=== PATIENT | female | born 1940 | race Caucasian/White ===

== ENCOUNTER 2019-03-18 11:46 | Emergency (ER) | payer MEDICARE ==
[2019-03-18] MEDS ORDERED: DOXYcycline CAP(*) 100 MG PO ONE (11:54)
--- NOTE | 2019-03-18 11:56 | ED ---
Bite Injury/Animal - HPI Summary HPI Summary: 78-year-old female presents with tick bite last night. States she noticed a tick on her left arm. She removed the tick and states she got the head. She does not know how long the tick was on the area. She denies any fevers. No spreading redness. Has history of arthritis. - History of Current Complaint Chief Complaint: EDAnimalBite Stated Complaint: TICK BITE ON LEFT ARM PER PT Time Seen by Provider: 03/18/19 11:54 Pain Intensity: 0 - Allergies/Home Medications Allergies/Adverse Reactions: Allergies Allergy/AdvReac Type Severity Reaction Status Date / Time hydrocodone Allergy Rash And Verified 03/18/19 11:55 Itching PMH/Surg Hx/FS Hx/Imm Hx Endocrine/Hematology History: Denies: Hx Diabetes Cardiovascular History: Reports: Hx Hypertension - DIURETIC TWICE DAILY Denies: Hx Pacemaker/ICD Comment Only: Other Cardiovascular Problems/Disorders - LYMPHEDEMA JANESSA LEGS, murmur Respiratory History: Reports: Hx Asthma - NO MEDS., Hx Sleep Apnea Denies: Other Respiratory Problems/Disorders GI History: Reports: Hx Gastroesophageal Reflux Disease, Hx Hiatal Hernia Denies: Other GI Disorders History: Denies: Hx Dialysis, Hx Renal Disease Musculoskeletal History: Reports: Hx Arthritis - RHEUMATOID Denies: Hx Osteoporosis Sensory History: Reports: Hx Cataracts - JANESSA REMOVED, Hx Contacts or Glasses - GLASSES Denies: Hx Hearing Aid Opthamlomology History: Reports: Hx Cataracts - JANESSA REMOVED, Hx Contacts or Glasses - GLASSES Psychiatric History: Denies: Hx Panic Disorder - Cancer History Hx Chemotherapy: No Hx Radiation Therapy: No - Surgical History Surgery Procedure, Year, and Place: cataract removal,. hysterectomy,. APPENDECTOMY - REMOVED WHEN DOING AN EXPLORATORY SURG. LUMBAR surgery 12/13 Hx Anesthesia Reactions: No Infectious Disease History: No Infectious Disease History: Denies: Traveled Outside the [place] in Last 30 Days - Family History Known Family History: Positive: None - reviewed & noncontributory - Social History Alcohol Use: None Hx Substance Use: No Substance Use Type: Reports: None Hx Tobacco Use: No Smoking Status (MU): Never Smoked Tobacco Review of Systems Negative: Fever Negative: Chest Pain Negative: Shortness Of Breath Positive: Other - tick bite All Other Systems Reviewed And Are Negative: Yes Physical Exam Triage Information Reviewed: Yes Vital Signs On Initial Exam: Initial Vitals Temp Pulse Resp BP Pulse Ox 98 F 73 16 179/81 96 03/18/19 11:49 03/18/19 11:49 03/18/19 11:49 03/18/19 11:49 03/18/19 11:49 Vital Signs Reviewed: Yes Appearance: Positive: Well-Appearing Skin: Positive: Warm, Dry, Other - tick bite on left arm with erythema around bite that is not warm to touch Head/Face: Positive: Normal Head/Face Inspection Eyes: Positive: Normal, Conjunctiva Clear ENT: Positive: Pharynx normal Respiratory/Lung Sounds: Positive: Clear to Auscultation, Breath Sounds Present Cardiovascular: Positive: Normal, RRR Musculoskeletal: Positive: Normal Neurological: Positive: Normal Psychiatric: Positive: Normal Diagnostics - Vital Signs Vital Signs Temp Pulse Resp BP Pulse Ox 03/18/19 11:49 98 F 73 16 179/81 96 - Laboratory Lab Statement: Any lab studies that have been ordered have been reviewed, and results considered in the medical decision making process. Bite Injury Course/Dx - Course Course Of Treatment: 78-year-old female presents with tick bite last night. States she noticed a tick on her left arm. She removed the tick and states she got the head. She does not know how long the tick was on the area. She denies any fevers. No spreading redness. Has history of arthritis. On exam has tick bite to left arm with no tick present. No spreading rash. Also has dog bites incidental on the left with no signs of infection that are old and healing. Gave doxycycline as prophylaxis. Told if develop any new rash return. Patient understands agrees with plan. - Diagnoses Differential Diagnosis/HQI/PQRI: Positive: Cellulitis, Other - tick bite, lyme Provider Diagnosis: Tick bite Discharge - Sign-Out/Discharge Documenting (check all that apply): Patient Departure Patient Received Moderate/Deep Sedation with Procedure: No - Discharge Plan Condition: Good Disposition: HOME Patient Education Materials: Tick Bite (ED) Referrals: Anthony Soto MD [Primary Care Provider] - Additional Instructions: You have been prophylactically treated for Lyme disease Return to ED if develop any rash or signs of infection - Billing Disposition and Condition Condition: GOOD Disposition: Home
--- OUTSIDE RECORDS SUMMARY | 2019-03-18 12:03 | XMS REPORT | Continuity of Care Document ---
:1940 External Reference #:[id number] Author Name Lucia Felix Care Team Providers Name Role Phone Anthony Soto MD Primary Care Physician Unavailable Payers Date Identification Numbers Payment Provider Subscriber Policy Number: [id number] Medicare Blue Ppo Alyx Vaughn Group Number: [id number] [address] [address] PayID: [id number] [place] [address] Effective: 2005 Policy Number: [id number] Medicare Alyx Vaughn Expires: 2018 PayID: [id number] [address] [place] [address] Effective: 2016 Policy Number: [id number] Progressive Alyx Vaughn Onset: 2016 Group Name: [address] [id number] PayID: [id number] [place] [address] Expires: 2018 Policy Number: [id number] Medicare Alyx Vaughn PayID: [id number] [address] [place] [address] Advance Directives Description No Information Available Problems Active Problems Provider Date Displacement of lumbar intervertebral disc Tyrell Fried M.D. Onset: 2012 without myelopathy Thoracic and lumbosacral neuritis Tyrell Fried M.D. Onset: 11/20/2014 Dyspnea Aylin Devlin M.D. Onset: 12/21/2015 Mitral valve disorder Aylin Devlin M.D. Onset: 12/21/2015 Essential hypertension Aylin Devlin M.D. Onset: 12/21/2015 Syncope and collapse Aylin Devlin M.D. Onset: 05/02/2016 Paroxysmal supraventricular tachycardia Aylin Devlin M.D. Onset: 05/02/2016 Obstructive sleep apnea syndrome Aylin Devlin M.D. Onset: 05/02/2016 Dizziness and giddiness Aylin Devlin M.D. Onset: 06/10/2016 Lumbar radiculopathy Tyrell Fried M.D. Onset: 07/02/2018 Lumbar spondylolisthesis Tyrell Fried M.D. Onset: 07/26/2018 Rheumatoid arthritis Ileana Dean M.D. Onset: 02/18/2019 Localized, primary osteoarthritis Ileana Daen M.D. Onset: 02/18/2019 Family History Date Family Member(s) Observation Comments General Heart Disease both parents Father due to in 1970's heart () Mother due to Heart Disease () - age 93 Social History Type Date Description Comments Sex Unknown Marital Status Lives With Occupation Retired Tobacco Use Start: Unknown Never Smoked Cigarettes ETOH Use Rarely consumes alcohol Recreational Drug Use Denies Drug Use Tobacco Use Start: Unknown Patient has never smoked Smoking Status Reviewed: 03/17/19 Patient has never smoked Exercise Type/Frequency Exercises sporadically PT 2x week Allergies, Adverse Reactions, Alerts Active Allergies Reaction Severity Comments Date Hydrocodone 09/21/2013 Medications Active Medications SIG Qnty Indications Ordering Date Provider Methotrexate take 4 16tabs M06.09 Yosi Amador, 02/21/2019 2.5mg capsules/tablets by M.D. Tablets mouth once weekly on Mondays BD 1ML Tuberculin use for weekly 12units Yosi Amador, 02/15/2019 Syringe/Safetyglide injection of M.D. TB Needle 27GX1/2" methotrexate 27G X 1/2" 1 ML Misc Folic Acid Take One Tablet By 30tabs M06.4 Yosi Amador, 09/15/2018 1mg Mouth Every Day M.D. Tablets Duloxetine HCL 1 by mouth once a Unknown 30mg week (mondays) Caps DR Aquino Spironolactone/Bowie Take One Tablet By Unknown chlorothiazide Mouth Twice A Day 25-25mg Tablets History Medications Methotrexate Sodium inject 0.4 milliliters 8ml M06.09 Yosi 02/15/2019 - (PF) (10 mg) subcutaneously Perry, 02/21/2019 50mg/2ML Solution once per week as M.D. directed. single-dose vial. discard any remainder after use Sulfasalazine take 2 tabs in the 270tabs M06.09 Yosi 08/18/2018 - 500mg Tablets morning and 2 tabs in Perry, 02/15/2019 DR the evening for a total M.D. of 4 daily tabs daily ongoing No Active Medications Unknown 06/23/2017 - 06/04/2018 Colace Clear 1 daily (pt no longer Aylin 06/10/2016 - Jel taking) Luce, 08/30/2016 M.D. Spironolactone 1 by mouth every other 30tabs R55 Aylin 04/18/2016 - 25mg Tablets day alternating with [place], 08/30/2016 Hydrochlorothiazide (pt M.D. no longer taking) Hydrochlorothiazide 1 by mouth every other 30tabs R55 Aylin 04/18/2016 - 25mg day alternating with [place], 08/30/2016 Tablets Spironolactone (pt no M.D. longer taking) Gabapentin 1 po tid 90caps 722.10 Tyrell 03/16/2014 - 300mg Capsules [place], 09/28/2014 M.D. Gabapentin 2 tab po qam,1 tab 150caps 722.10 Tyrell 01/18/2014 - 300mg Capsules after lunch,2 tab po hs Corky, 03/16/2014 M.D. Codeine/Acetaminophen 1 po Q6h prn pain 60tabs 722.10 Tyrell 01/18/2014 - [place], 02/16/2014 300-30mg Tablets M.D. Tylenol/Codeine #3 1-2 po q 6h prn pain 60tabs Tyrell 01/05/2014 - 300-30mg [place], 02/16/2014 Tablets M.D. Gabapentin 1 po bid and 2 po at hs 90caps 722.10 Tyrell 12/28/2013 - 300mg Capsules Corky, 02/16/2014 M.D. Codeine/Acetaminophen 1-2 po Q6h prn pain 60tabs 722.10 Tyrell 12/28/2013 - Corky, 01/18/2014 300-15mg Tablets M.D. Medrol medrol dosepack as 1pak Tyrell 12/28/2013 - 4mg Tablets directed Corky, 01/18/2014 Miko Aleve 1 daily as needed Unknown - 220mg Capsules 06/09/2016 Essential Electrolytes once daily (pt no Unknown - longer taking) 06/08/2017 Gabapentin 1 by mouth daily as Unknown - 300mg Capsules needed 05/01/2016 Tramadol HCL 1/2 tablet po daily ( Unknown - 50mg Tablets started decrease dose 06/08/2017 on thursday04/15/16) Myrbetriq 1 tablet po daily Am Unknown - 50mg Tablets ER 06/08/2017 24HR Magnesium OTC 1 tablet po daily Unknown - 250mg 06/08/2017 Estrace apply as directed Unknown - 0.1mg/GM Cream 06/08/2017 Cartia XT 1 cap po daily(pt no Shallish, - 120mg Caps ER longer taking) MD Anthony 06/08/2017 24HR Metronidazole applicated vaginal as Unknown - 0.75% Gel nighttime as needed 06/08/2017 Ranitidine HCL take one tablet by Unknown - 150mg mouth once a week 06/08/2017 Tablets Fridays Aldactazide 1 tablet twice daily Unknown - 25-25mg Tablets 02/15/2019 Fluocinolone Acetonide topical every day for 2 Unknown - Scalp weeks, then stop for 2 07/01/2018 0.01% Oil weeks, may repeat Gabapentin 1 by mouth once daily Unknown - 300mg Capsules 12/16/2018 Clindamycin Phosphate apply as needed Unknown - 1% 12/16/2018 Lotion Sulfamethoxazole-Trimet 1 by mouth twice a day Unknown - hoprim 07/26/2018 400-80mg Tablets Fluocinolone Acetonide apply twice daily to Unknown - affected area. as 12/16/2018 0.01% Cream needed Atorvastatin Calcium 1 by mouth every day(pt Unknown - 10mg no longer taking) 06/08/2017 Tablets Hydrocortisone apply to affected area Unknown - 2.5% Cream twice daily 04/17/2016 Gabapentin 1 by mouth three times Unknown - 300mg Capsules a day 10/21/2015 Acetaminophen-Codeine 1 tid Unknown - #3 10/30/2014 300-30mg Tablets Spironolactone/Hydrochl 1 po qd prn Shallish, - orothiazide MD Anthony 04/18/2016 25-25mg Tablets Colace 1 po bid 40caps Unknown - 100mg Capsules 02/16/2014 Spironolactone 1 po qd 30tabs Unknown - 25mg Tablets 01/19/2014 Multi-Vitamins 1 po qd 30tabs Unknown - Tablets 06/08/2017 Fish Oil 1 po qd Unknown - 1000mg Capsules 06/08/2017 Tylenol/Codeine #3 1-2 po q 4-6 hr prn 20tabs Unknown - 300-30mg pain. 01/18/2014 Tablets Acetaminophen Extra 1 tab by mouth twice a 90tabs Unknown - Strength day as needed 09/28/[address] 1 po once per week 30tabs Unknown - 20mg Tablets Mondays06/08/2017 DR Vitamin D3 1 po daily 30caps Unknown - 1000Unit 06/08/2017 Capsules Tylenol Sinus prn 24tabs Unknown - Congestion & Pain 12/21/2013 5-325mg Tablets Oxycodone HCL 1-2 po qid prn 45tabs Unknown - 5mg Tablets 12/21/2013 Losartan Potassium 1 po qd 30tabs Unknown - 25mg 05/02/2016 Tablets Medications Administered in Office Medication SIG Qnty Indications Ordering Provider Date Depomedrol 40MG Ileana Dean M.D. 02/18/2019 Injection Depomedrol 40MG Ileaan Dean M.D. 02/18/2019 Injection Technetium TC 99M Kane Quijano, DO [facility] 07/13/2018 Tetrofosmin, Per Unit Dose Up To 40 Millicuries Injection Technetium TC 99M Tr Matthew M.D., 12/18/2015 Tetrofosmin, Per Unit Dose [facility], [facility] Up To 40 Millicuries Injection Technetium TC 99M Aylin Devlin M.D. 12/18/2015 Tetrofosmin, Per Unit Dose Up To 40 Millicuries Injection Immunizations CPT Code Status Date Vaccine Reaction Lot # [id number] Given 09/15/2018 Fluzone High Dose no immediate reaction [id number] noted 40038 Given 10/19/2015 Influenza Virus 3Yrs & Over Vital Signs Date Vital Result Comment 03/17/2019 12:48pm Height 64 inches 5'4" Weight 193.00 lb Heart Rate 70 /min reg BP Systolic Sitting 144 mmHg Lue reg cuff BP Diastolic Sitting 88 mmHg Lue reg cuff Respiratory Rate 16 /min BMI (Body Mass Index) 33.1 kg/m2 03/04/2019 2:17pm Height 64 inches 5'4" Weight 193.00 lb BP Systolic 140 mmHg BP Diastolic 96 mmHg Pain Level 5 BMI (Body Mass Index) 33.1 kg/m2 02/18/2019 9:57am Height 64 inches 5'4" Weight 203.00 lb BP Systolic 120 mmHg BP Diastolic 76 mmHg Pain Level 9 BMI (Body Mass Index) 34.8 kg/m2 02/15/2019 11:37am Height 64 inches 5'4" Weight 203.50 lb Heart Rate 73 /min BP Systolic Sitting 132 mmHg BP Diastolic Sitting 78 mmHg Pain Level 7 O2 % BldC Oximetry 96 % BMI (Body Mass Index) 34.9 kg/m2 12/16/2018 12:50pm Height 64 inches 5'4" Weight 205.00 lb Heart Rate 68 /min BP Systolic Sitting 136 mmHg BP Diastolic Sitting 72 mmHg Respiratory Rate 14 /min Pain Level 7 BMI (Body Mass Index) 35.2 kg/m2 09/17/2018 9:38am Height 64 inches 5'4" Weight 194.00 lb w/ shoes BP Systolic Sitting 122 mmHg lue lg cuff BP Diastolic Sitting 78 mmHg lue lg cuff BP Systolic Standing 128 mmHg lue lg cuff BP Diastolic Standing 76 mmHg lue lg cuff BMI (Body Mass Index) 33.3 kg/m2 Ejection Fraction 55-60% echo 06/24/2018 09/15/2018 1:33pm Height 64 inches 5'4" Weight 195.00 lb Heart Rate 80 /min BP Systolic Sitting 118 mmHg BP Diastolic Sitting 64 mmHg Respiratory Rate 14 /min Pain Level 5 BMI (Body Mass Index) 33.5 kg/m2 08/18/2018 2:49pm Height 64 inches 5'4" Weight 201.00 lb Heart Rate 74 /min BP Systolic Sitting 124 mmHg BP Diastolic Sitting 68 mmHg Respiratory Rate 14 /min Pain Level 10 BMI (Body Mass Index) 34.5 kg/m2 07/26/2018 9:45am Height 64 inches 5'4" Weight 190.00 lb BP Systolic Sitting 150 mmHg BP Diastolic Sitting 60 mmHg Pain Level 8 BMI (Body Mass Index) 32.6 kg/m2 07/02/2018 10:26am Height 64 inches 5'4" Weight 190.00 lb BP Systolic Sitting 118 mmHg BP Diastolic Sitting 70 mmHg Pain Level 6 BMI (Body Mass Index) 32.6 kg/m2 07/01/2018 8:51am Height 64 inches 5'4" Weight 190.00 lb Heart Rate 70 /min BP Systolic Sitting 116 mmHg BP Diastolic Sitting 68 mmHg Respiratory Rate 14 /min Pain Level 10 BMI (Body Mass Index) 32.6 kg/m2 06/04/2018 11:19am Height 64 inches 5'4" Weight 193.00 lb w/ shoes Heart Rate 60 /min BP Systolic Sitting 118 mmHg lue lg cuff BP Diastolic Sitting 74 mmHg lue lg cuff BP Systolic Standing 116 mmHg lue lg cuff BP Diastolic Standing 72 mmHg lue lg cuff Respiratory Rate 20 /min BMI (Body Mass Index) 33.1 kg/m2 Ejection Fraction 55-60% echo 12/17/15 06/23/2017 8:44am Height 64 inches 5'4" Weight 194.00 lb with sandals Heart Rate 64 /min BP Systolic Sitting 138 mmHg Rue lrg cuff BP Diastolic Sitting 78 mmHg Rue lrg cuff BP Systolic Standing 142 mmHg Rue lrg cuff BP Diastolic Standing 86 mmHg Rue lrg cuff Respiratory Rate 16 /min BMI (Body Mass Index) 33.3 kg/m2 Ejection Fraction 55-60% 12/17/2015-echo 06/10/2016 3:03pm Height 64 inches 5'4" Weight 197.00 lb with shoes Heart Rate 66 /min BP Systolic Sitting 124 mmHg Ra lrg cuff BP Diastolic Sitting 66 mmHg Ra lrg cuff BP Systolic Standing 116 mmHg Ra lrg cuff BP Diastolic Standing 76 mmHg Ra lrg cuff Respiratory Rate 17 /min BMI (Body Mass Index) 33.8 kg/m2 Ejection Fraction 55-60% 12/17/15 05/07/2016 10:18am Height 64 inches 5'4" Weight 199.50 lb with shoes Heart Rate 70 /min BP Systolic 138 mmHg LA lrg cuff BP Diastolic 78 mmHg LA lrg cuff BMI (Body Mass Index) 34.2 kg/m2 Ejection Fraction 63% Nem 12/18/15 05/02/2016 8:24am Height 64 inches 5'4" Weight 199.00 lb with shoes Heart Rate 68 /min BP Systolic Sitting 100 mmHg left arm, large cuff BP Diastolic Sitting 64 mmHg left arm, large cuff BP Systolic Standing 98 mmHg left arm, large cuff BP Diastolic Standing 64 mmHg left arm, large cuff Respiratory Rate 16 /min BMI (Body Mass Index) 34.2 kg/m2 Ejection Fraction 55-60% 12/17/15 04/18/2016 9:43am Height 64 inches 5'4" Weight 196.00 lb without shoes Heart Rate 66 /min BP Systolic Sitting 110 mmHg La lg cuff BP Diastolic Sitting 70 mmHg La lg cuff BP Systolic Standing 104 mmHg La lg cuff BP Diastolic Standing 70 mmHg La lg cuff Respiratory Rate 17 /min BMI (Body Mass Index) 33.6 kg/m2 Ejection Fraction 55-60% date 12/17/15 ECHO 12/21/2015 2:12pm Height 64 inches 5'4" Weight 205.00 lb w/ shoes Heart Rate 72 /min reg BP Systolic Sitting 150 mmHg Rue, reg cuff BP Diastolic Sitting 94 mmHg Rue, reg cuff BP Systolic Standing 150 mmHg Rue BP Diastolic Standing 96 mmHg Rue Respiratory Rate 20 /min BMI (Body Mass Index) 35.2 kg/m2 Ejection Fraction 55-60% as of 12/17/15 echo 12/13/2015 2:21pm Height 64 inches 5'4" Weight 210.00 lb with boots Heart Rate 64 /min regular BP Systolic 122 mmHg left arm reg cuff BP Diastolic 64 mmHg left arm reg cuff BP Systolic Sitting 122 mmHg right arm reg cuff BP Diastolic Sitting 68 mmHg right arm reg cuff BP Systolic Standing 126 mmHg right arm reg cuff BP Diastolic Standing 68 mmHg right arm reg cuff Respiratory Rate 20 /min BMI (Body Mass Index) 36.0 kg/m2 Ejection Fraction 63% 2006 echo 10/19/2015 9:56am Height 64 inches 5'4" Weight 210.25 lb Heart Rate 78 /min BP Systolic Sitting 132 mmHg BP Diastolic Sitting 76 mmHg Respiratory Rate 18 /min O2 % BldC Oximetry 93 % BMI (Body Mass Index) 36.1 kg/m2 10/15/2015 1:56pm Height 64 inches 5'4" Weight 210.25 lb Heart Rate 74 /min BP Systolic 150 mmHg BP Diastolic 82 mmHg Respiratory Rate 14 /min Body Temperature 98.5 F O2 % BldC Oximetry 98 % BMI (Body Mass Index) 36.1 kg/m2 Neck Circumference in inches 14 07/09/2015 10:34am Height 64 inches 5'4" Weight 204.00 lb Pain Level 8 BMI (Body Mass Index) 35.0 kg/m2 05/07/2015 8:59am Height 64 inches 5'4" Weight 204.00 lb Pain Level 8 BMI (Body Mass Index) 35.0 kg/m2 01/10/2015 10:35am Height 64 inches 5'4" Weight 204.00 lb Heart Rate 68 /min BP Systolic 138 mmHg BP Diastolic 82 mmHg Pain Level 10 BMI (Body Mass Index) 35.0 kg/m2 12/14/2014 10:25am Height 66 inches 5'6" Weight 207.00 lb Heart Rate 70 /min BP Systolic Sitting 126 mmHg BP Diastolic Sitting 80 mmHg Pain Level 10 all over BMI (Body Mass Index) 33.4 kg/m2 11/28/2014 2:18pm Height 66 inches 5'6" Weight 206.00 lb Heart Rate 60 /min BP Systolic Sitting 124 mmHg BP Diastolic Sitting 80 mmHg Respiratory Rate 16 /min BMI (Body Mass Index) 33.2 kg/m2 11/20/2014 1:52pm Height 66 inches 5'6" Weight 206.00 lb Heart Rate 60 /min BP Systolic Sitting 124 mmHg BP Diastolic Sitting 70 mmHg Pain Level 0 BMI (Body Mass Index) 33.2 kg/m2 10/30/2014 9:03am Height 66 inches 5'6" Weight 208.00 lb Heart Rate 60 /min BP Systolic Sitting 134 mmHg BP Diastolic Sitting 82 mmHg Pain Level 2 L buttock /leg BMI (Body Mass Index) 33.6 kg/m2 09/28/2014 9:58am Height 66 inches 5'6" Weight 204.00 lb Heart Rate 76 /min BP Systolic Sitting 126 mmHg BP Diastolic Sitting 84 mmHg Pain Level 5 Lbuttock 7 leg BMI (Body Mass Index) 32.9 kg/m2 03/16/2014 1:02pm Height 66 inches 5'6" Weight 207.00 lb BP Systolic 122 mmHg BP Diastolic 74 mmHg Pain Level 3 back BMI (Body Mass Index) 33.4 kg/m2 02/16/2014 1:02pm Height 66 inches 5'6" Weight 209.00 lb BP Systolic 124 mmHg BP Diastolic 82 mmHg Pain Level 5 left hip and leg BMI (Body Mass Index) 33.7 kg/m2 01/18/2014 12:56pm Height 66 inches 5'6" Weight 206.00 lb BP Systolic 108 mmHg BP Diastolic 62 mmHg Pain Level 5 back and left leg BMI (Body Mass Index) 33.2 kg/m2 12/28/2013 11:54am Height 66 inches 5'6" Weight 212.00 lb BP Systolic 122 mmHg BP Diastolic 80 mmHg Pain Level 7-8 back BMI (Body Mass Index) 34.2 kg/m2 12/21/2013 1:40pm Height 66 inches 5'6" Weight 212.00 lb BP Systolic 138 mmHg BP Diastolic 82 mmHg Pain Level 8 low back, left leg BMI (Body Mass Index) 34.2 kg/m2 09/21/2013 9:52am Height 66 inches 5'6" Weight 214.00 lb BP Systolic 128 mmHg BP Diastolic 86 mmHg Pain Level 8 low back and left leg BMI (Body Mass Index) 34.5 kg/m2 Results Test Date Facility Test Result H/L Range Note Comp Metabolic Panel 03/16/2019 [facility] Sodium 140 mmol/L N 135-[address] [place] [address] [phone] Potassium 4.0 mmol/L N 3.5-5.0 Chloride 105 mmol/L N 101-111 Co2 Carbon Dioxide 31 mmol/L N 22-32 Anion Gap 4 mmol/L N 2-11 Glucose 86 mg/dL N 70-100 Blood Urea Nitrogen 18 mg/dL N 6-24 Creatinine 0.63 mg/dL N 0.51-0.95 BUN/Creatinine Ratio 28.6 High 8-20 Calcium 9.3 mg/dL N 8.6-10.3 Total Protein 6.4 g/dL N 6.4-8.9 Albumin 3.9 g/dL N 3.2-5.2 Globulin 2.5 g/dL N 2-4 Albumin/Globulin Ratio 1.6 N 1-3 Total Bilirubin 0.50 mg/dL N 0.2-1.0 Alkaline Phosphatase 66 U/L N 34-104 Alt 15 U/L N 7-52 Ast 17 U/L N 13-39 Egfr Non- 91.4 >60 Egfr 110.6 >60 1 CBC Auto Diff 03/16/2019 [facility] White Blood 8.0 10^3/uL N 3.5-10.[address] [place] [address] [phone] Red Blood Count 4.90 10^6/uL High 3.70-4.87 Hemoglobin 13.3 g/dL N 12.0-16.0 Hematocrit 41 % N 33-41 Mean Corpuscular Volume 84 fL N 80-97 Mean Corpuscular Hemoglobin 27 pg N 27-31 Mean Corpuscular HGB Conc 33 g/dL N 31-36 Red Cell Distribution Width 17 % High 10.5-15 Platelet Count 236 10^3/uL N 150-450 Mean Platelet Volume 10.0 fL N 7.4-10.4 Abs Neutrophils 5.4 10^3/uL N 1.5-7.7 Abs Lymphocytes 1.7 10^3/uL N 1.0-4.8 Abs Monocytes 0.5 10^3/uL N 0-0.8 Abs Eosinophils 0.2 10^3/uL N 0-0.6 Abs Basophils 0.2 10^3/uL N 0-0.2 Abs Nucleated RBC 0 10^3/uL Granulocyte % 67.7 % Lymphocyte % 20.8 % Monocyte % 6.5 % Eosinophil % 3.0 % Basophil % 2.0 % Nucleated Red Blood Cells % 0.1 Laboratory test 03/16/2019 [facility] Erythrocyte Sed 26 mm/Hr N 0-[address] [place] [address] [phone] Anti Nuclear Antibody <pending> C Reactive Protein 2.20 mg/L N <8.01 Laboratory test 02/14/2019 [facility] Erythrocyte Sed 35 mm/Hr High 0-30 [address] [place] [address] [phone] C Reactive Protein 4.03 mg/L N <8.01 3 CBC Auto Diff 02/14/2019 [facility] White Blood 6.1 10^3/uL N 3.5-10.[address] [place] [address] [phone] Red Blood Count 4.64 10^6/uL N 3.70-4.87 Hemoglobin 12.8 g/dL N 12.0-16.0 Hematocrit 38 % N 33-41 Mean Corpuscular Volume 83 fL N 80-97 Mean Corpuscular Hemoglobin 28 pg N 27-31 Mean Corpuscular HGB Conc 33 g/dL N 31-36 Red Cell Distribution Width 17 % High 10.5-15 Platelet Count 251 10^3/uL N 150-450 Mean Platelet Volume 9.6 fL N 7.4-10.4 Abs Neutrophils 4.0 10^3/uL N 1.5-7.7 Abs Lymphocytes 1.3 10^3/uL N 1.0-4.8 Abs Monocytes 0.6 10^3/uL N 0-0.8 Abs Eosinophils 0.2 10^3/uL N 0-0.6 Abs Basophils 0.1 10^3/uL N 0-0.2 Abs Nucleated RBC 0 10^3/uL Granulocyte % 64.4 % Lymphocyte % 20.6 % Monocyte % 9.4 % Eosinophil % 3.3 % Basophil % 2.3 % Nucleated Red Blood Cells % 0 Comp Metabolic Panel 02/14/2019 [facility] Sodium 139 mmol/L N 135-[address] [place] [address] [phone] Potassium 3.9 mmol/L N 3.5-5.0 Chloride 102 mmol/L N 101-111 Co2 Carbon Dioxide 30 mmol/L N 22-32 Anion Gap 7 mmol/L N 2-11 Glucose 85 mg/dL N 70-100 Blood Urea Nitrogen 17 mg/dL N 6-24 Creatinine 0.67 mg/dL N 0.51-0.95 BUN/Creatinine Ratio 25.4 High 8-20 Calcium 9.3 mg/dL N 8.6-10.3 Total Protein 6.6 g/dL N 6.4-8.9 Albumin 4.0 g/dL N 3.2-5.2 Globulin 2.6 g/dL N 2-4 Albumin/Globulin Ratio 1.5 N 1-3 Total Bilirubin 0.40 mg/dL N 0.2-1.0 Alkaline Phosphatase 72 U/L N 34-104 Alt 12 U/L N 7-52 Ast 16 U/L N 13-39 Egfr Non- 85.1 >60 Egfr 103.0 >60 4 Laboratory test 12/13/2018 [facility] Erythrocyte Sed 68 mm/Hr High 0-40 [address] [place] [address] [phone] C Reactive Protein 8.24 mg/L High <8.01 6 CBC Auto Diff 12/13/2018 [facility] White Blood 7.4 10^3/uL N 3.5-10.[address] [place] [address] [phone] Red Blood Count 4.60 10^6/uL N 4.00-5.40 Hemoglobin 12.1 g/dL N 12.0-16.0 Hematocrit 38 % N 35-47 Mean Corpuscular Volume 82 fL N 80-97 Mean Corpuscular Hemoglobin 26 pg Low 27-31 Mean Corpuscular HGB Conc 32 g/dL N 31-36 Red Cell Distribution Width 16 % High 10.5-15 Platelet Count 265 10^3/uL N 150-450 Mean Platelet Volume 9.8 fL N 7.4-10.4 Abs Neutrophils 4.9 10^3/uL N 1.5-7.7 Abs Lymphocytes 1.4 10^3/uL N 1.0-4.8 Abs Monocytes 0.8 10^3/uL N 0-0.8 Abs Eosinophils 0.2 10^3/uL N 0-0.6 Abs Basophils 0.1 10^3/uL N 0-0.2 Abs Nucleated RBC 0 10^3/uL Granulocyte % 66.3 % Lymphocyte % 19.4 % Monocyte % 10.3 % Eosinophil % 2.2 % Basophil % 1.8 % Nucleated Red Blood Cells % 0 Comp Metabolic Panel 12/13/2018 [facility] Sodium 141 mmol/L N 135-[address] [place] [address] [phone] Potassium 3.6 mmol/L N 3.5-5.0 Chloride 102 mmol/L N 101-111 Co2 Carbon Dioxide 33 mmol/L High 22-32 Anion Gap 6 mmol/L N 2-11 Glucose 83 mg/dL N 70-100 Blood Urea Nitrogen 19 mg/dL N 6-24 Creatinine 0.76 mg/dL N 0.51-0.95 BUN/Creatinine Ratio 25.0 High 8-20 Calcium 9.7 mg/dL N 8.6-10.3 Total Protein 6.5 g/dL N 6.4-8.9 Albumin 4.1 g/dL N 3.2-5.2 Globulin 2.4 g/dL N 2-4 Albumin/Globulin Ratio 1.7 N 1-3 Total Bilirubin 0.40 mg/dL N 0.2-1.0 Alkaline Phosphatase 67 U/L N 34-104 Alt 15 U/L N 7-52 Ast 19 U/L N 13-39 Egfr Non- 73.6 >60 Egfr 89.1 >60 7 Laboratory test 09/13/2018 [facility] Erythrocyte Sed 64 mm/Hr High 0-40 [address] [place], [place] [id number] [phone] C Reactive Protein 2.89 mg/L N <8.01 9 CBC Auto Diff 09/13/2018 [facility] White Blood 8.3 10^3/uL N 3.5-10.[address] [place], [place] [id number] [phone] Red Blood Count 4.62 10^6/uL N 4.00-5.40 Hemoglobin 12.7 g/dL N 12.0-16.0 Hematocrit 39 % N 35-47 Mean Corpuscular Volume 85 fL N 80-97 Mean Corpuscular Hemoglobin 28 pg N 27-31 Mean Corpuscular HGB Conc 32 g/dL N 31-36 Red Cell Distribution Width 16 % High 10.5-15 Platelet Count 327 10^3/uL N 150-450 Mean Platelet Volume 9.9 um3 N 7.4-10.4 Abs Neutrophils 5.5 10^3/uL N 1.5-7.7 Abs Lymphocytes 1.7 10^3/uL N 1.0-4.8 Abs Monocytes 0.7 10^3/uL N 0-0.8 Abs Eosinophils 0.2 10^3/uL N 0-0.6 Abs Basophils 0.2 10^3/uL N 0-0.2 Abs Nucleated RBC 0 10^3/uL Granulocyte % 66.1 % N 38-83 Lymphocyte % 20.6 % Low 25-47 Monocyte % 8.4 % High 0-7 Eosinophil % 2.7 % N 0-6 Basophil % 2.2 % High 0-2 Nucleated Red Blood Cells % 0 Comp Metabolic Panel 09/13/2018 [facility] Sodium 138 mmol/L N 135-[address] [place] [address] [phone] Potassium 4.2 mmol/L N 3.5-5.0 Chloride 102 mmol/L N 101-111 Co2 Carbon Dioxide 29 mmol/L N 22-32 Anion Gap 7 mmol/L N 2-11 Glucose 84 mg/dL N 70-100 Blood Urea Nitrogen 21 mg/dL N 6-24 Creatinine 0.74 mg/dL N 0.51-0.95 BUN/Creatinine Ratio 28.4 High 8-20 Calcium 9.6 mg/dL N 8.6-10.3 Total Protein 6.9 g/dL N 6.4-8.9 Albumin 4.3 g/dL N 3.2-5.2 Globulin 2.6 g/dL N 2-4 Albumin/Globulin Ratio 1.7 N 1-3 Total Bilirubin 0.40 mg/dL N 0.2-1.0 Alkaline Phosphatase 78 U/L N 34-104 Alt 10 U/L N 7-52 Ast 15 U/L N 13-39 Egfr Non- 76.1 >60 Egfr 92.1 >60 10 Hla B27 07/01/2018 [facility] Hla B27 Negative [address] [place] [address] [phone] Hla B27 Interp See Comment 12 Laboratory test 07/01/2018 [facility] Creatine 40 U/L N 10- 223 13 finding 101 [facility] Kinase(CK) [place] [address] [phone] Rheumatoid Factor < 10 IU/mL N <15 14 Erythrocyte Sed Rate 30 mm/Hr N 0-40 15 C Reactive Protein 3.86 mg/L N <8.01 16 Connective Tissue 07/01/2018 [facility] Anti-Nuclear 0.5 U [address] [place] [address] [phone] Cyclic Citrullinated Peptide <15.6 U 18 Interpretation See Comment 19 Istat BUN/Crea/Egfr/V 07/02/2017 [facility] Poc Bun 17 mg/dL N 9-18 [address] [place] [address] [phone] Poc Crea Mainct 0.7 mg/dL N 0.6-0.9 GFR Non- MCT 81.4 N >60 GFR Mainct 104.6 N >60 20 Creatinine 11/21/2014 [facility] Creatinine 0.61 mg/dL N 0.51- 0.95 [address] [place] [address] [phone] Egfr Non- 95.9 N >60 Egfr 123.3 N >60 21 Laboratory test 11/21/2014 [facility] Blood Urea 16 mg/dL N 6- 24 finding [address] [facility] [place] [address] [phone] Basic Metabolic 12/22/2013 [facility] Sodium 139 mmol/L 133- 145 Panel [address] [place] [address] [phone] Potassium 4.2 mmol/L 3.5-5.0 Chloride 105 mmol/L 101-111 Co2 Carbon Dioxide 29.0 mmol/L 22-32 Anion Gap 5.0 mmol/L 2-11 Glucose 78 mg/dL 70-100 Blood Urea Nitrogen 13 mg/dL 6-24 Creatinine 0.70 mg/dL 0.50-1.40 BUN/Creatinine Ratio 18.6 8-20 Calcium 9.5 mg/dL 8.1-9.9 Egfr Non- 82.0 >60 Egfr 105.5 >60 22 CBC No Diff 12/22/2013 [facility] White Blood 8.1 10^3/uL 4.8 -10.[address] [place] [address] [phone] Red Blood Count 4.51 10^6/uL 4.0-5.4 Hemoglobin 12.4 g/dL 12.0-16.0 Hematocrit 38 % 35-47 Mean Corpuscular Volume 84 fL 80-97 Mean Corpuscular Hemoglobin 28 pg 27-31 Mean Corpuscular HGB Conc 33 g/dL 31-36 Red Cell Distribution Width 15 % 10.5-15 Platelet Count 235 10^3/uL 150-450 Mean Platelet Volume 10 um3 7.4-10.4 1 Because ethnic data is not always readily available, this report includes an eGFR for both -Americans and non- Americans. The National Kidney Disease Education Program (NKDEP) does not endorse the use of the MDRD equation for patients that are not between the ages of 18 and 70, are , have extremes of body size, muscle mass, or nutritional status, or are non- or non-. According to the National Kidney Foundation, irrespective of diagnosis, the stage of the disease is based on the level of kidney function: Stage Description GFR(mL/min/1.73 m(2)) 1 Kidney damage with normal or decreased GFR 90 2 Kidney damage with mild decrease in GFR 60-89 3 Moderate decrease in GFR 30-59 4 Severe decrease in GFR 15-29 5 Kidney failure <15 (or dialysis) 2 Test Performed by: [facility] [address] [place] [id number] Tom Turner M.D. Director of Laboratory 3 Please check labs 2 days before follow up 4 Because ethnic data is not always readily available, this report includes an eGFR for both -Americans and non- Americans. The National Kidney Disease Education Program (NKDEP) does not endorse the use of the MDRD equation for patients that are not between the ages of 18 and 70, are , have extremes of body size, muscle mass, or nutritional status, or are non- or non-. According to the National Kidney Foundation, irrespective of diagnosis, the stage of the disease is based on the level of kidney function: Stage Description GFR(mL/min/1.73 m(2)) 1 Kidney damage with normal or decreased GFR 90 2 Kidney damage with mild decrease in GFR 60-89 3 Moderate decrease in GFR 30-59 4 Severe decrease in GFR 15-29 5 Kidney failure <15 (or dialysis) 5 Please check labs 2 days beforfe follow up 6 Please check labs 2 days beforfe follow up 7 Because ethnic data is not always readily available, this report includes an eGFR for both -Americans and non- Americans. The National Kidney Disease Education Program (NKDEP) does not endorse the use of the MDRD equation for patients that are not between the ages of 18 and 70, are , have extremes of body size, muscle mass, or nutritional status, or are non- or non-. According to the National Kidney Foundation, irrespective of diagnosis, the stage of the disease is based on the level of kidney function: Stage Description GFR(mL/min/1.73 m(2)) 1 Kidney damage with normal or decreased GFR 90 2 Kidney damage with mild decrease in GFR 60-89 3 Moderate decrease in GFR 30-59 4 Severe decrease in GFR 15-29 5 Kidney failure <15 (or dialysis) 8 Please check labs 2 days before follow up 9 Please check labs 2 days before follow up 10 Because ethnic data is not always readily available, this report includes an eGFR for both -Americans and non- Americans. The National Kidney Disease Education Program (NKDEP) does not endorse the use of the MDRD equation for patients that are not between the ages of 18 and 70, are , have extremes of body size, muscle mass, or nutritional status, or are non- or non-. According to the National Kidney Foundation, irrespective of diagnosis, the stage of the disease is based on the level of kidney function: Stage Description GFR(mL/min/1.73 m(2)) 1 Kidney damage with normal or decreased GFR 90 2 Kidney damage with mild decrease in GFR 60-89 3 Moderate decrease in GFR 30-59 4 Severe decrease in GFR 15-29 5 Kidney failure <15 (or dialysis) 11 REFERENCE VALUE Not Applicable 12 RESULT: HLA-B27 antigen was not detected. ADDITIONAL INFORMATION Method: Flow Cytometry Performing Laboratory CLIA# [id number] Test Performed by: [address] [place] [address] 13 Please check labs this week CC: CRICKET CORKYKevin COLINDRES 14 Please check labs this week CC: CRICKET CORYKAXEL COLINDRES 15 Please check labs this week 16 Please check labs this week CC: CRICKET CORKY SYEDAGUSTINA COLINDRES 17 REFERENCE VALUE <=1.0 (Negative) 18 REFERENCE VALUE <20.0 (Negative) 19 Tests for antibodies to dsDNA and CRISTINO antigens are not performed automatically unless the NURIA result is > or= 3.0 U. Studies performed at [facility] indicate that positive NURIA results <3.0 U are rarely accompanied by positive second order tests. Test Performed by: [facility] - [address] [address] 20 Because ethnic data is not always readily available, this report includes an eGFR for both -Americans and non- Americans. The National Kidney Disease Education Program (NKDEP) does not endorse the use of the MDRD equation for patients that are not between the ages of 18 and 70, are , have extremes of body size, muscle mass, or nutritional status, or are non- or non-. According to the National Kidney Foundation, irrespective of diagnosis, the stage of the disease is based on the level of kidney function: Stage Description GFR(mL/min/1.73 m(2)) 1 Kidney damage with normal or decreased GFR 90 2 Kidney damage with mild decrease in GFR 60-89 3 Moderate decrease in GFR 30-59 4 Severe decrease in GFR 15-29 5 Kidney failure <15 (or dialysis) 21 Because ethnic data is not always readily available, this report includes an eGFR for both -Americans and non- Americans. The National Kidney Disease Education Program (NKDEP) does not endorse the use of the MDRD equation for patients that are not between the ages of 18 and 70, are , have extremes of body size, muscle mass, or nutritional status, or are non- or non-. According to the National Kidney Foundation, irrespective of diagnosis, the stage of the disease is based on the level of kidney function: Stage Description GFR(mL/min/1.73 m(2)) 1 Kidney damage with normal or decreased GFR 90 2 Kidney damage with mild decrease in GFR 60-89 3 Moderate decrease in GFR 30-59 4 Severe decrease in GFR 15-29 5 Kidney failure <15 (or dialysis) 22 Because ethnic data is not always readily available, this report includes an eGFR for both -Americans and non- Americans. The National Kidney Disease Education Program (NKDEP) does not endorse the use of the MDRD equation for patients that are not between the ages of 18 and 70, are , have extremes of body size, muscle mass, or nutritional status, or are non- or non-. According to the National Kidney Foundation, irrespective of diagnosis, the stage of the disease is based on the level of kidney function: Stage Description GFR(mL/min/1.73 m(2)) 1 Kidney damage with normal or decreased GFR 90 2 Kidney damage with mild decrease in GFR 60-89 3 Moderate decrease in GFR 30-59 4 Severe decrease in GFR 15-29 5 Kidney failure <15 (or dialysis) Procedures Date Code Description Status 02/18/2019 10695 Inject/Drain Joint/Bursa Major W/O US Completed 07/14/2018 52197 Myocardial Perfusion Imaging Tomographic (Spect) Multiple Completed Studies 07/13/2018 09184 Stress Test Completed 07/13/2018 03342 Myocardial Perfusion Imaging Tomographic (Spect) Multiple Completed Studies 06/24/2018 36532 ECHO Transthoracic, Real-Time 2D With Doppler And Color Completed Flow 06/24/2018 88474 ECHO Transthoracic, Real-Time 2D With Doppler And Color Completed Flow 06/04/2018 99537 EKG Tracing & Interpretation Completed 06/23/2017 30164 EKG Tracing & Interpretation Completed 03/25/2016 55276 Mobile Cardiovascular Telemetry Over 24 HR Up To 30 Days Completed 03/25/2016 60764 Mobile Cardiovascular Telemetry Over 24 HR Up To 30 Days Completed 12/18/2015 40179 Stress Test Completed 12/18/2015 15670 Myocardial Perfusion Imaging Tomographic (Spect) Multiple Completed Studies 12/18/2015 76861 Myocardial Perfusion Imaging Tomographic (Spect) Multiple Completed Studies 12/17/2015 44336 ECHO Transthoracic, Real-Time 2D With Doppler And Color Completed Flow 12/13/2015 91365 EKG Tracing & Interpretation Completed 12/23/2013 77830 Laminotomy W/Decomp NRV RT,One Interspace,Lumbar Completed 12/22/2013 22755 EKG, Interpretation Only Completed 07/11/2011 33844 Xray Knee 3 Views Completed 07/11/2011 10861 Xray Knee 3 Views Completed Encounters Type Date Location Provider Dx Diagnosis Office Visit 03/04/2019 Orthopedic Ileana Dean, M25.562 Pain in left knee 2:15p [facility] MJonesDJones M25.561 Pain in right knee M25.462 Effusion, left knee M25.461 Effusion, right knee M06.09 Rheumatoid arthritis w/o rheumatoid factor, multiple sites M17.0 Bilateral primary osteoarthritis of knee Office Visit 02/18/2019 10:00a Orthopedic Services Ileana Dean, M25.562 Pain in left Of [facility] M.D. knee M25.561 Pain in right knee M25.462 Effusion, left knee M25.461 Effusion, right knee M17.0 Bilateral primary osteoarthritis of knee M06.09 Rheumatoid arthritis w/o rheumatoid factor, multiple sites Office Visit 02/15/2019 11:20a Rheumatology Yosi M06.09 Rheumatoid Services Of Phoebe Amador M.D. 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 polyarthropathy Z79.899 Other workday financials consultant (current) drug therapy M54.5 Low back pain R60.0 Localized edema Office 07/26/2018 Neurosurgery Tyrell M43.16 Spondylolisthesis, Visit 9:40a Services Of Phoebe Fried M.D. lumbar region Office 07/02/2018 Neurosurgery Tyrell M54.16 Radiculopathy, lumbar Visit 10:30a Services Of Phoebe Fried M.D. region Office 07/01/2018 Rheumatology Yosi M06.4 Inflammatory Visit 9:00a Services Of Phoebe Amador M.D. polyarthropathy M54.5 Low back pain M25.461 Effusion, right knee M25.462 Effusion, left knee M25.561 Pain in right knee M25.562 Pain in left knee Office Visit 06/04/2018 11:20a [facility] Aylin Devlin, R06.02 Shortness of Of [facility] [place] [facility] [place] breath R35.1 Nocturia M79.1 Myalgia M25.50 Pain in unspecified joint I89.0 Lymphedema, not elsewhere classified Office Visit 06/23/2017 9:00a [place] Aylin Devlin, I34.0 Nonrheumatic mitral Cardiology Of M.D. (valve) [facility] insufficiency I10 Essential (primary) hypertension G47.33 Obstructive sleep apnea (adult) (pediatric) Office Visit 06/10/2016 2:45p [facility] Aylin Devlin, R42 Dizziness and Of Phoebe Crouch giddiness I10 Essential (primary) hypertension G47.33 Obstructive sleep apnea (adult) (pediatric) I34.0 Nonrheumatic mitral (valve) insufficiency R11.0 Nausea Office Visit 05/07/2016 10:30a [facility] ELVIN Ksesler R42 Dizziness and giddiness R42 Dizziness and giddiness R55 Syncope and collapse R55 Syncope and collapse I95.9 Hypotension, unspecified G47.33 Obstructive sleep apnea (adult) (pediatric) I95.9 Hypotension, unspecified R60.0 Localized edema G47.33 Obstructive sleep apnea (adult) (pediatric) I34.0 Nonrheumatic mitral (valve) insufficiency R60.0 Localized edema R11.0 Nausea Office Visit 12/21/2015 2:40p [facility] Aylin Devlin R06.02 Shortness of Of [facility] [place] [facility] [place] breath I34.0 Nonrheumatic mitral (valve) insufficiency I10 Essential (primary) hypertension Office Visit 12/13/2015 2:15p [facility] Aylin Devlin M.D. R05 Cough R06.02 Shortness of breath M79.621 Pain in right upper arm R01.1 Cardiac murmur, unspecified M79.622 Pain in left upper arm Office Visit 10/19/2015 9:45a [facility] Richy Pnea M.D. R05 Cough Services Of [facility] Office Visit 10/15/2015 1:45p [facility] Richy Pena M.D. R05 Cough Services Of [facility] R06.02 Shortness of breath Office Visit 07/09/2015 Orthopedic Siria 715.96 Osteoarthrosis 10:45a Services Of MACY Mehta Unspec Genlzd Or [facility] Localized Lower Leg Office Visit 05/07/2015 Orthopedic Mati An, 715.96 Osteoarthrosis 9:15a Services Of Miko Unspec Genlzd Or [facility]. Localized Lower Leg 715.36 Osteoarthrosis Localzd Not Spec Prime Or 2Ndy Lower Leg 275.49 Metabolic Disorder Calcium Other Office Visit 01/10/2015 Orthopedic Mati An, 715.16 Osteoarthrosis 10:00a Services Of [place].MRenato Crouch Localized Prim Lower Leg Office Visit 12/14/2014 Neurosurgery Tyrell 724.4 Neuritis Or 10:45a Services Of [facility] [place], Radiculitis Thoracic M.D. Or Lumbosacral Unspec Office Visit 11/28/2014 [facility]rell S. 722.10 Intervertebral Disc 2:00p Services Of [facility] Dejan Displacement Lumbar Miko W/O Myelopathy 724.4 Neuritis Or Radiculitis Thoracic Or Lumbosacral Unspec Office Visit 11/20/2014 Neurosurgery Tyrell 724.4 Neuritis Or 2:00p Services Of [facility] Miko Fried Radiculitis Thoracic Or Lumbosacral Unspec Office Visit 10/30/2014 Neurosurgery Tyrell 724.4 Neuritis Or 9:15a Services Of [facility] Miko Fried Radiculitis Thoracic Or Lumbosacral Unspec Office Visit 09/28/2014 Neurosurgery Tyrell 722.10 Intervertebral Disc 9:45a Services Of [facility] Miko Fried Displacement Lumbar W/O Myelopathy Office Visit 12/21/2013 Neurosurgery Tyrell 722.10 Intervertebral Disc 1:45p Services Of [facility] Miko Fried Displacement Lumbar W/O Myelopathy Office Visit 09/21/2013 Neurosurgery Tyrell 722.10 Intervertebral Disc 10:30a Services Of Phoebe Fried M.D. Displacement Lumbar W/O Myelopathy Office Visit 07/11/2011 Orthopedic k Juve, 716.96 Arthropathy Unspec 2:30p Services Of Lyn Crouch Lower Leg 714.0 Rheumatoid Arthritis Plan of Treatment Future Appointment(s):06/06/2019 10:30 am - Ileana Dean M.D. at [facility]opedic [facility] Of [facility]03/18/2019 12:40 pm - Yosi Amador M.D. at Rheumatology Services Of [facility]03/17/2019 - Gabriela Cates, CONSTANTINEI10 Essential (primary) hypertensionFollow up:in [address] Devlin. ECG at that time.G47.33 Obstructive sleep apnea (adult) (pediatric)E78.5 Hyperlipidemia, unspecifiedNew Labs:Lipid Panel - [facility], Ordered: 03/17/19I47.1 Supraventricular tachycardia
--- OUTSIDE RECORDS SUMMARY | 2019-03-18 12:04 | XMS REPORT | Continuity of Care Document ---
:1940 External Reference #:[id number] Author Name CorneliusMaximoelba Care Team Providers Name Role Phone Anthony Soto MD Primary Care Physician Unavailable Payers Date Identification Numbers Payment Provider Subscriber Policy Number: [id number] Medicare Blue Ppo Alyx Vaughn Group Number: [id number] [address] [address] PayID: [id number] [place] [address] Effective: 2005 Policy Number: [id number] Medicare Alyx Vaughn Expires: 2018 PayID: [id number] [address] [place] [address] Effective: 2016 Policy Number: [id number] Progressive Alyx Vaughn Onset: 2016 Group Name: [address] [address] PayID: [id number] [place] [address] Expires: 2018 Policy Number: [id number] Medicare Alyx Vaughn PayID: [id number] [address] [place] [address] Advance Directives Description No Information Available Problems Date Description Provider Status Onset: 11/29/2013 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 Active Onset: 12/21/2015 Dyspnea Aylni Devlin M.D. Active Onset: 12/21/2015 Mitral valve disorder Aylin Devlin M.D. Active Onset: 12/21/2015 Essential hypertension Aylin Devlin M.D. Active Onset: 05/02/2016 Syncope and collapse Aylin Devlin M.D. Active Onset: 05/02/2016 Paroxysmal supraventricular tachycardia Aylin Devlin M.D. Active Onset: 05/02/2016 Obstructive sleep apnea syndrome Aylin Devlin M.D. Active Onset: 06/10/2016 Dizziness and giddiness Aylin Devlin M.D. Active Onset: 07/02/2018 Lumbar radiculopathy Tyrell Fried M.D. Active Onset: 07/26/2018 Lumbar spondylolisthesis Tyrell Fried M.D. Active Onset: 02/18/2019 Rheumatoid arthritis Ileana Dean M.D. Active Onset: 02/18/2019 Localized, primary osteoarthritis Ileana Dean M.D. Active Family History Date Family Member(s) Observation Comments General Heart Disease both parents Father due to in 1970s heart () Mother due to Heart Disease () - age 93 Social History Type Date Description Comments Sex Unknown Marital Status Lives With Occupation Retired Tobacco Use Start: Unknown Never Smoked Cigarettes ETOH Use Rarely consumes alcohol Recreational Drug Use Denies Drug Use Tobacco Use Start: Unknown Patient has never smoked Smoking Status Reviewed: 03/04/19 Patient has never smoked Exercise Type/Frequency Exercises sporadically Small amount of housework daily, pt has a rowing machine, pt tries to use daily. pt also uses a stationary bike Allergies, Adverse Reactions, Alerts Date Description Reaction Status Severity Comments 09/21/2013 Hydrocodone Active Medications Medication Date Status Form Strength Qnty SIG Indications Ordering Provider Methotrexate 02/21 Active Tablets 2.5mg 16tab take 4 M06.09 s capsules/ta Perry, blets by M.D. mouth once weekly on Mondays BD 1ML Tuberculin 02/15 Active Misc 27G X 12uni use for Yosi Syringe/Safetygl 1/2" 1 ML ts weekly Perry, e TB Needle injection M.D. 27GX1/2" of methotrexat e Folic Acid 09/15 Active Tablets 1mg 30tab Take One M06.4 s Tablet By Perry, Mouth Every M.D. Day Duloxetine HCL 00/[address] 30mg 1 by mouth Unknown /0000 Part every day Spironolactone/Hyd Active Tablets 25-25mg Take One Unknown rochlorothiazide /0000 Tablet By Mouth Twice A Day Methotrexate 02/15 Hx Solution 50mg/2ML 8ml inject 0.4 M06. Yosi Sodium (PF) milliliters Perry, - (10 mg) M.D. 02/21 subcutane sly once per week as directed. single-dose vial. discard any remainder after use Sulfasalazine 08/18 Hx Tablets 500mg 270ta take [address] loaiza in the Perry, - morning and .D. 02/15 2 tabs in the evening for a total of 4 daily tabs daily ongoing No Active 06/23 Hx Unknown Medications /2016 - 06/04 Colace Clear 06/10 Hx Jel 1 daily (pt no longer Elbert, - taking) M.D. 08/30 Spironolactone 04/18 Hx Tablets 25mg 30tab 1 by mouth R55 Aylin s every other [place], - day M.D. 08/30 with Hydrochloro thiazide (pt no longer taking) Hydrochlorothiazid 04/18 Hx Tablets 25mg 30tab 1 by mouth R55 Aylin s every other Elbert, - day M.D. 08/30 with Spironolact one (pt no longer taking) Gabapentin 03/16 Hx Capsules 300mg 90cap 1 po tid 722.10 s Corky, - M.D. 09/28 Gabapentin 01/18 Hx Capsules 300mg 150ca 2 tab po 722.10 ps qam,1 tab [place], - after M.D. 03/16 lunch,2 tab /2013 po hs Codeine/Acetaminop 01/18 Hx Tablets 300-30mg 60tab 1 po Q6h 722.10 s prn pain [place], - M.D. 02/16 Tylenol/Codeine #3 01/05 Hx Tablets 300-30mg 60tab 1-2 po q 6h s prn pain Marti Fried MKirsty 02/16 Medrol 12/28 Hx Tablets 4mg 1pak medrol dosepack as Corky, - directed MKirsty 01/18 Codeine/Acetaminop 12/28 Hx Tablets 300-15mg 60tab 1-2 po Q6h 722.10 s prn pain Marti Fried MKirsty 01/18 Gabapentin 12/28 Hx Capsules 300mg 90cap 1 po bid 722.10 s and 2 po at Corky, - hs M.DJones 02/16 Losartan Potassium Hx Tablets 25mg 30tab 1 po qd Unknown / s - 05/02 Oxycodone HCL Hx Tablets 5mg 45tab 1-2 po qid Unknown /0000 s prn - 12/21 Tylenol Sinus Hx Tablets 5-325mg 24tab prn Unknown Congestion & Pain /0000 s - 12/21 Vitamin D3 Hx Capsules 1000Unit 30cap 1 po daily Unknown /0000 s - 06/[address] Hx Tablets 20mg 30tab 1 po once Unknown /0000 DR s per week - Mondays Acetaminophen Hx Tablets 500mg 90tab 1 tab by Unknown Extra Strength / s mouth twice - a day as 09/28 Tylenol/Codeine #3 Hx Tablets 300-30mg 20tab 1-2 po q Unknown /0000 s 4-6 hr prn - pain. 01/18 Fish Oil Hx Capsules 1000mg 1 po qd Unknown /0000 - 06/08 Multi-Vitamins Hx Tablets 30tab 1 po qd Unknown /0000 s - 06/08 Spironolactone 00 Hx Tablets 25mg 30tab 1 po qd Unknown / s - 01/19 Colace Hx Capsules 100mg 40cap 1 po bid Unknown /0000 s - 02/16 Spironolactone/Hyd Hx Tablets 25-25mg 1 po qd prn chato Sotolorothiazide /0000 MD Anthony - 04/18 Acetaminophen-Code 00/00 Hx Tablets 300-30mg 1 tid Unknown ine #3 /0000 - 10/30 Gabapentin Hx Capsules 300mg 1 by mouth Unknown /0000 three times - a day 10/21 Hydrocortisone 00/ Hx Cream 2.5% apply to Unknown /0000 affected - area twice 04/17 Atorvastatin 00/ Hx Tablets 10mg 1 by mouth Unknown Calcium /0000 every - day(pt no 06/08 longer taking) Aleve 00 Hx Capsules 220mg 1 daily as Unknown /0000 needed - 06/09 Essential 00/00 Hx once daily Unknown Electrolytes /0000 (pt no - longer 06/08 taking) /2016 Gabapentin Hx Capsules 300mg 1 by mouth Unknown /0000 daily as - needed 05/01 Tramadol HCL Hx Tablets 50mg 1/2 tablet Unknown /0000 po daily ( - started 06/08 dose on thursday04/15/16) Myrbetriq Hx Tablets 50mg 1 tablet po Unknown /0000 ER 24HR daily Am - 06/08 Magnesium OTC Hx 250mg 1 tablet po Unknown /0000 daily - 06/08 Estrace 00 Hx Cream 0.1mg/GM apply as Unknown /0000 directed - 06/08 Cartia XT Hx Caps ER 120mg 1 cap po Shallish, /0000 24HR daily(pt no MD Anthony - longer 06/08 taking) Metronidazole Hx Gel 0.75% applicated Unknown /0000 vaginal as - nighttime 06/08 as needed /2016 Ranitidine HCL 00 Hx Tablets 150mg take one Unknown /0000 tablet by - mouth once 06/08 a week /Fridays Aldactazide 00/00 Hx Tablets 25-25mg 1 tablet Unknown /0000 twice daily - 02/15 Fluocinolone 0000 Hx Oil 0.01% topical Unknown Acetonide Scalp /0000 every day - for 2 07/01 weeks, stop for 2 weeks, march repeat Gabapentin Hx Capsules 300mg 1 by mouth Unknown /0000 once daily - 12/16 Clindamycin 00 Hx Lotion 1% apply as Unknown Phosphate /0000 needed - 12/16 Sulfamethoxazole-T Hx Tablets 400-80mg 1 by mouth Unknown rimethoprim /0000 twice a day - 07/26 Fluocinolone Hx Cream 0.01% apply twice Unknown Acetonide /0000 daily to - affected 12/16 area. needed Medications Administered in Office Medication Date Status Form Strength Qnty SIG Indications Ordering Provider Depomedrol Administered Injection Ileana 40MG 019 Miko Dean Depomedrol Administered Injection Ileana 40MG 019 Miko Dean Technetium TC Administered Injection Kane S. 99M 018 Quijano, DO Tetrofosmin, FACC Per Unit Dose Up To 40 Millicuries Technetium TC Administered Injection Tr Bruce 99M 016 Geraldine Matthew M.D., FACC, Per Unit Dose FASNC Up To 40 Millicuries Technetium TC Administered Injection Aylin 99M 016 Geraldine Devlin M.D. Per Unit Dose Up To 40 Millicuries Immunizations CPT Code Status Date Vaccine Reaction Lot # 66860 Given 09/15/2018 Fluzone High Dose no immediate reaction [id number] noted [id number] Given 10/19/2015 Influenza Virus 3Yrs & Over Vital Signs Date Vital Result Comment 03/04/2019 2:17pm Height 64 inches 5'4" Weight [...] Date Facility Test Result H/L Range Note Laboratory test 02/14/2019 [facility] Erythrocyte Sed 35 mm/Hr High 0-30 [address] [place] [address] [phone] C Reactive Protein 4.03 mg/L N <8.01 2 CBC Auto Diff 02/14/2019 [facility] White Blood 6.1 10^3/uL N 3.5-10.[address] [place] [address] [phone] Red Blood Count 4.64 10^6/uL N 3.70-4.87 [...] Cells % 0 Comp Metabolic Panel 02/14/2019 [facility] Sodium 139 mmol/L N 135-[address] [place] [address] [phone] Potassium 3.9 mmol/L N 3.5-5.0 Chloride 102 [...] Egfr Non- 85.1 >60 Egfr 103.0 >60 3 Laboratory test 12/13/2018 [facility] Erythrocyte Sed 68 mm/Hr High 0-40 [address] [place] [address] [phone] C Reactive Protein 8.24 mg/L High <8.01 5 CBC Auto Diff 12/13/2018 [facility] White Blood 7.4 10^3/uL N 3.5-10.[address] [place] [address] [phone] Red Blood Count 4.60 10^6/uL N 4.00-5.40 [...] Cells % 0 Comp Metabolic Panel 12/13/2018 [facility] Sodium 141 mmol/L N 135-[address] [place] [address] [phone] Potassium 3.6 mmol/L N 3.5-5.0 Chloride 102 [...] Egfr Non- 73.6 >60 Egfr 89.1 >60 6 Laboratory test 09/13/2018 [facility] Erythrocyte Sed 64 mm/Hr High 0-40 [address] Rate [place], [place] [id number] [phone] C Reactive Protein 2.89 mg/L N <8.01 8 CBC Auto Diff 09/13/2018 [facility] White Blood 8.3 10^3/uL N 3.5-10.[address] Count [place], [place] [id number] [phone] Red Blood Count 4.62 10^6/uL N 4.00-5.40 [...] Cells % 0 Comp Metabolic Panel 09/13/2018 [facility] Sodium 138 mmol/L N 135-[address] [place] [address] [phone] Potassium 4.2 mmol/L N 3.5-5.0 Chloride 102 [...] Egfr Non- 76.1 >60 Egfr 92.1 >60 9 Hla B27 07/01/2018 [facility] Hla B27 Negative [address] [place] [address] [phone] Hla B27 Interp See Comment 11 Laboratory test 07/01/2018 [facility] Creatine 40 U/L N 10- [address] [facility] Kinase(CK) [place] [address] [phone] Rheumatoid Factor < 10 IU/mL N <15 13 Erythrocyte Sed Rate 30 mm/Hr N 0-40 14 C Reactive Protein 3.86 mg/L N <8.01 15 Connective Tissue 07/01/2018 [facility] Anti-Nuclear 0.5 U [address] [facility] [place] [address] [phone] Cyclic Citrullinated Peptide <15.6 U 17 Interpretation See Comment 18 Istat BUN/Crea/Egfr/V 07/02/2017 [facility] Poc Bun 17 mg/dL N 9-[address] [place] [address] [phone] Poc Crea Mainct 0.7 mg/dL N 0.6-0.9 GFR Non- MCT 81.4 N >60 GFR Mainct 104.6 N >60 19 Creatinine 11/21/2014 [facility] Creatinine 0.61 mg/dL N 0.51- 0.[address] [place] [address] [phone] Egfr Non- 95.9 N >60 Egfr 123.3 N >60 20 Laboratory test 11/21/2014 [facility] Blood Urea 16 mg/dL N 6- [address] [place] [address] [phone] Basic Metabolic 12/22/2013 [facility] Sodium 139 mmol/L 133- 145 Panel [address] [place] [address] [phone] Potassium 4.2 mmol/L 3.5-5.0 Chloride 105 mmol/L 101-111 Co2 Carbon Dioxide 29.0 mmol/L 22-32 Anion Gap 5.0 mmol/L 2-11 Glucose 78 mg/dL 70-100 Blood Urea Nitrogen 13 mg/dL 6-24 Creatinine 0.70 mg/dL 0.50-1.40 BUN/Creatinine Ratio 18.6 8-20 Calcium 9.5 mg/dL 8.1-9.9 Egfr Non- 82.0 >60 Egfr 105.5 >60 21 CBC No Diff 12/22/2013 [facility] White Blood 8.1 10^3/uL 4.8 -10.[address] [place] [address] [phone] Red Blood Count 4.51 10^6/uL 4.0-5.4 Hemoglobin 12.4 g/dL 12.0-16.0 Hematocrit 38 % 35-47 Mean Corpuscular Volume 84 fL 80-97 Mean Corpuscular Hemoglobin 28 pg 27-31 Mean Corpuscular HGB Conc 33 g/dL 31-36 Red Cell Distribution Width 15 % 10.5-15 Platelet Count 235 10^3/uL 150-450 Mean Platelet Volume 10 um3 7.4-10.4 1 Test Performed by: [facility] [address] [place], [place] [address] Tom Turner M.D. Director of Laboratory 2 Please check labs 2 days before follow up 3 Because ethnic data is not always readily [...] 15-29 5 Kidney failure <15 (or dialysis) 4 Please check labs 2 days beforfe follow up 5 Please check labs 2 days beforfe follow up 6 Because ethnic data is not always readily [...] 15-29 5 Kidney failure <15 (or dialysis) 7 Please check labs 2 days before follow up 8 Please check labs 2 days before follow up 9 Because ethnic data is not always readily [...] 15-29 5 Kidney failure <15 (or dialysis) 10 REFERENCE VALUE Not Applicable 11 RESULT: HLA-B27 antigen was not detected. ADDITIONAL INFORMATION Method: Flow Cytometry Performing Laboratory CLIA# [id number] Test Performed by: [place] [address] 12 Please check labs this week CC: [facility] 13 Please check labs this week CC: [facility] 14 Please check labs this week 15 Please check labs this week CC: [facility] [place] 16 REFERENCE VALUE <=1.0 (Negative) 17 REFERENCE VALUE <20.0 (Negative) 18 Tests for antibodies to dsDNA and CRISTINO antigens are not performed automatically unless the NURIA result is > or= 3.0 U. Studies performed at [facility] indicate that positive NURIA results <3.0 U are rarely accompanied by positive second order tests. Test Performed by: [place] [address] [place] [address] 19 Because ethnic data is not always readily [...] 15-29 5 Kidney failure <15 (or dialysis) 20 Because ethnic data is not always [...] dialysis) Procedures Date Code Description Status 02/18/2019 79292 Inject/Drain Joint/Bursa Major W/O US Completed 07/14/2018 96951 Myocardial Perfusion Imaging Tomographic (Spect) Multiple Completed Studies 07/13/2018 39930 Stress Test Completed 07/13/2018 03692 Myocardial Perfusion Imaging Tomographic (Spect) Multiple Completed Studies 06/24/2018 81485 ECHO Transthoracic, Real-Time 2D With Doppler And Color Completed Flow 06/24/2018 25862 ECHO Transthoracic, Real-Time 2D With Doppler And Color Completed Flow 06/04/2018 01263 EKG Tracing & Interpretation Completed 06/23/2017 45638 EKG Tracing & Interpretation Completed 03/25/2016 05459 Mobile Cardiovascular Telemetry Over 24 HR Up To 30 Days Completed 03/25/2016 11273 Mobile Cardiovascular Telemetry Over 24 HR Up To 30 Days Completed 12/18/2015 15354 Stress Test Completed 12/18/2015 90956 Myocardial Perfusion Imaging Tomographic (Spect) Multiple Completed Studies 12/18/2015 16858 Myocardial Perfusion Imaging Tomographic (Spect) Multiple Completed Studies 12/17/2015 86866 ECHO Transthoracic, Real-Time 2D With Doppler And Color Completed Flow 12/13/2015 46059 EKG Tracing & Interpretation Completed 12/23/2013 69221 Laminotomy W/Decomp NRV RT,One Interspace,Lumbar Completed 12/22/2013 65241 EKG, Interpretation Only Completed 07/11/2011 84725 Xray Knee 3 Views Completed 07/11/2011 50371 Xray Knee 3 Views Completed Encounters Type Date Location Provider Dx Diagnosis Office Visit 02/18/2019 Orthopedic Ileana Dean, M25.562 Pain in left knee 10:00a Services Of [facility] Miko M25.561 Pain in right knee M25.462 Effusion, left knee M25.461 Effusion, right knee M17.0 Bilateral primary osteoarthritis of knee M06.09 Rheumatoid arthritis w/o rheumatoid factor, multiple sites Office Visit 02/15/2019 11:20a Rheumatology [place] M06.09 Rheumatoid Services Of Phoebe Amador M.D. 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 polyarthropathy Z79.899 Other fci (current) drug therapy M54.5 Low back pain [...] in left knee Office Visit 06/04/2018 11:20a [facility] Aylin Devlin, R06.02 Shortness of Of [facility] AT [facility] M.D. breath R35.1 Nocturia M79.1 Myalgia M25.50 Pain in unspecified joint I89.0 Lymphedema, not elsewhere classified Office Visit 06/23/2017 9:00a [place] Aylin Devlin, I34.0 Nonrheumatic mitral Cardiology Of M.D. (valve) [facility] insufficiency I10 Essential (primary) hypertension G47.33 Obstructive sleep apnea (adult) (pediatric) Office Visit 06/10/2016 2:45p [facility] Aylin Devlin, R42 Dizziness and Of [facility] M.D. giddiness I10 Essential (primary) hypertension G47.33 Obstructive sleep apnea (adult) (pediatric) I34.0 Nonrheumatic mitral (valve) insufficiency R11.0 Nausea Office Visit 05/07/2016 10:30a [facility] ELVIN Kessler R42 Dizziness and giddiness R42 Dizziness and giddiness R55 Syncope and collapse R55 Syncope and collapse I95.9 Hypotension, unspecified G47.33 Obstructive sleep apnea (adult) (pediatric) I95.9 Hypotension, unspecified R60.0 Localized edema G47.33 Obstructive sleep apnea (adult) (pediatric) I34.0 Nonrheumatic mitral (valve) insufficiency R60.0 Localized edema R11.0 Nausea Office Visit 12/21/2015 2:40p [facility] Aylin Devlin, R06.02 Shortness of Of [employer] AT [facility] M.D. breath I34.0 Nonrheumatic mitral (valve) insufficiency I10 Essential (primary) hypertension Office Visit 12/13/2015 2:15p [facility] Aylin Devlin M.D. R05 Cough R06.02 Shortness of breath M79.621 Pain in right upper arm R01.1 Cardiac murmur, unspecified M79.622 Pain in left upper arm Office Visit 10/19/2015 9:45a [facility] Richy Pena M.D. R05 Cough Services Of [facility] Office Visit 10/15/2015 1:45p [facility] Richy Pena M.D. R05 Cough Services Of [facility] R06.02 Shortness of breath Office Visit 07/09/2015 [...] Mati An, 715.16 Osteoarthrosis 10:00a Services Of [place].Monet Crouch Localized Prim Lower Leg Office Visit 12/14/2014 Neurosurgery Tyrell 724.4 Neuritis Or 10:45a Services Of Phoebe Fried Radiculiishaan Thoracic Julieth.DJones Or Lumbosacral Unspec Office Visit 11/28/2014 [place] [facility] Tyrell Douglas 722.10 Intervertebral Disc 2:00p Services Of Jose A Garza Lumbar Miko W/O Myelopathy 724.4 Neuritis Or Radiculitis Thoracic Or Lumbosacral Unspec Office Visit 11/20/2014 Neurosurgery Tyrell 724.4 Neuritis Or 2:00p Services Of Phoebe Fried M.D. Radiculitis Thoracic Or Lumbosacral Unspec Office Visit 10/30/2014 Neurosurgery Tyrell 724.4 Neuritis Or 9:15a Services Of Phoebe Fried M.D. Radiculitis Thoracic Or Lumbosacral Unspec Office Visit 09/28/2014 Neurosurgery Tyrell 722.10 Intervertebral Disc 9:45a Services Of Phoebe Fried M.D. Displacement Lumbar W/O Myelopathy Office Visit 12/21/2013 Neurosurgery Tyrell 722.10 Intervertebral Disc 1:45p Services Of Phoebe Fried M.D. Displacement Lumbar W/O Myelopathy Office Visit 09/21/2013 Neurosurgery Tyrell 722.10 Intervertebral Disc 10:30a Services Of Phoebe Fried M.D. Displacement Lumbar W/O Myelopathy Office Visit 07/11/2011 Orthopedic Mati An, 716.96 Arthropathy Unspec 2:30p Services Of Lyn Crouch Lower Leg 714.0 Rheumatoid Arthritis Plan of Treatment Future Appointment(s):06/06/2019 10:30 am - Ileana Dean M.D. at [facility]opedic [facility]03/18/2019 12:40 pm - Yosi Amador M.D. at Rheumatology Services [facility]03/17/2019 1:30 pm - Gabriela Cates NP at [facility]
--- OUTSIDE RECORDS SUMMARY | 2019-03-18 12:04 | XMS REPORT | Continuity of Care Document ---
:1940 External Reference #:[id number] Author Name LinoRoberto hernandez Care Team Providers Name Role Phone Anthony Soto MD Primary Care Physician Unavailable Payers Date Identification Numbers Payment Provider Subscriber Policy Number: [id number] Medicare Blue Ppo Alyx Vaughn Group Number: [id number] [address] [address] PayID: [id number] [place] [address] Effective: 2005 Policy Number: [id number] Medicare Alyx Vaughn Expires: 2018 PayID: [id number] [address] [place] [address] Effective: 2016 Policy Number: [id number] Progressive Alyx Vaughn Onset: 2016 Group Name: [address] [address] PayID: [id number] [place] [address] Expires: 2018 Policy Number: [id number] Medicare Alyx Vaughn PayID: [id number] [address] [place] [address] Advance Directives Description No Information Available Problems Date Description Provider Status Onset: 11/29/2013 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 Active Onset: 12/21/2015 Dyspnea Aylin Devlin M.D. Active Onset: 12/21/2015 Mitral valve [...] Lumbar radiculopathy Tyrell Fried M.D. Active Onset: 02/18/2019 Localized, primary osteoarthritis Ileana Dean M.D. Active Onset: 02/18/2019 Rheumatoid arthritis Ileana Dean M.D. Active Onset: 07/26/2018 Lumbar spondylolisthesis Tyrell Fried M.D. Active Family History Date Family Member(s) [...] Patient has never smoked Smoking Status Reviewed: 02/18/19 Patient has never smoked Exercise Type/Frequency Exercises sporadically Small amount of housework daily, pt has a rowing machine, pt tries to use daily. pt also uses a stationary bike Allergies, Adverse Reactions, Alerts Date Description Reaction Status Severity Comments 09/21/2013 Hydrocodone Active Medications Medication Date Status Form Strength Qnty SIG Indications Ordering Provider Methotrexate 02/15 Active Solution 50mg/2ML 8ml inject 0.4 M06.09 Yosi Sodium (PF) /2018 milliliters Perry, (10 mg) M.D. subcutaneou sly once per week as directed. single-dose vial. discard any remainder after use BD 1ML Tuberculin 02/15 Active Misc 27G X 12uni use for Yosi Syringe/Safetyglid /2018 1/2" 1 ML ts weekly Perry, e TB Needle injection M.D. 27GX1/2" of methotrexat e Folic Acid 09/15 Active Tablets 1mg 30tab Take One M06.4 Yosi /2018 s Tablet By Perry, Mouth Every M.D. Day Duloxetine HCL [address] 30mg 1 by mouth Unknown /0000 Part every day Spironolactone/Hyd Active Tablets 25-25mg Take One Unknown rochlorothiazide /0000 Tablet By Mouth Twice A Day Sulfasalazine 08/18 Hx Tablets 500mg 270ta take [address] loaiza in the Perry, - morning and M.D. 02/15 2 tabs in the evening for a total of 4 daily tabs daily ongoing No Active 06/23 Hx Unknown Medications /2016 - 06/04 Colace Clear 06/10 Hx Jel 1 daily (pt no longer [place], - taking) M.D. 08/30 Spironolactone 04/18 Hx Tablets 25mg 30tab 1 by mouth R55 Aylin s every other [place], - day M.D. 08/30 with Hydrochloro thiazide (pt no longer taking) Hydrochlorothiazid 04/18 Hx Tablets 25mg 30tab 1 by mouth R55 Aylin s every other [place], - day M.D. 08/30 with Spironolact one (pt no longer taking) Gabapentin 03/16 Hx Capsules 300mg 90cap 1 po tid 722.10 s [place], - M.D. 09/28 Gabapentin 01/18 Hx Capsules 300mg 150ca 2 tab po 722.10 ps qam,1 tab [place], - after M.D. 03/16 lunch,2 tab /2013 po hs Codeine/Acetaminop 01/18 Hx Tablets 300-30mg 60tab 1 po Q6h 722.10 s prn pain Corky, - M.D. 02/16 Tylenol/Codeine #3 01/05 Hx Tablets 300-30mg 60tab 1-2 po q 6h s prn pain Cokry, - M.D. 02/16 Medrol 12/28 Hx Tablets 4mg 1pak medrol dosepack as [place], - directed M.D. 01/18 Codeine/Acetaminop 12/28 Hx Tablets 300-15mg 60tab 1-2 po Q6h 722.10 Tyrell s prn pain Corky, - MKirsty 01/18 Gabapentin 12/28 Hx Capsules 300mg 90cap 1 po bid 722.10 s and 2 po at [place], - M.DJones 02/16 Losartan Potassium Hx Tablets 25mg [...] 90tab 1 tab by Unknown Extra Strength /0000 s mouth twice - a day as 09/28 Tylenol/Codeine #3 Hx Tablets 300-30mg 20tab 1-2 po q Unknown /0000 s 4-6 hr prn - pain. 01/18 Fish Oil Hx Capsules 1000mg 1 po qd Unknown /0000 - 06/08 Multi-Vitamins Hx Tablets 30tab 1 po qd Unknown /0000 s - 06/08 Spironolactone Hx Tablets 25mg 30tab 1 po qd Unknown /0000 s - 01/19 Colace Hx Capsules 100mg 40cap 1 po bid Unknown /0000 s - 02/16 Spironolactone/Hyd Hx Tablets 25-25mg 1 po qd prn Charles rochlorothiazide /0000 MD Anthony - 04/18 Acetaminophen-Code Hx Tablets 300-30mg 1 tid Unknown ine #3 /0000 - 10/30 Gabapentin Hx Capsules 300mg 1 by mouth Unknown / three times - a day 10/21 Hydrocortisone 00/00 Hx Cream 2.5% apply to Unknown /0000 affected - area twice 04/17 /2015 Atorvastatin 00/00 Hx Tablets 10mg 1 by mouth Unknown Calcium /0000 every - day(pt no 06/08 longer taking) Aleve 00/00 Hx Capsules 220mg 1 daily as Unknown /0000 needed - 06/09 Essential 00/00 Hx once daily Unknown Electrolytes /0000 (pt no - longer 06/08 taking) /2016 Gabapentin 00/00 Hx Capsules 300mg 1 by mouth Unknown /0000 daily as - needed 05/01 Tramadol HCL 00/00 Hx Tablets 50mg 1/2 tablet Unknown /0000 po daily ( - started 06/08 dose on thursday04/15/16) Myrbetriq 00/00 Hx Tablets 50mg 1 tablet po Unknown /0000 ER 24HR daily Am - 06/08 Magnesium OTC 00/00 Hx 250mg 1 tablet po Unknown /0000 daily - 06/08 Estrace Hx Cream 0.1mg/GM apply as Unknown /0000 directed - 06/08 Cartia XT 00 Hx Caps ER 120mg 1 cap po Shallish, /0000 24HR daily(pt no MD Anthony - longer 06/08 taking) /2016 Metronidazole 00 Hx Gel 0.75% applicated Unknown /0000 vaginal as - nighttime 06/08 as needed /2016 Ranitidine HCL 0000 Hx Tablets 150mg take one Unknown /0000 tablet by - mouth once 06/08 a week /Fridays Aldactazide 00/00 Hx Tablets 25-25mg 1 tablet Unknown /0000 twice daily - 02/15 Fluocinolone 00/00 Hx Oil 0.01% topical Unknown Acetonide Scalp /0000 every day - for 2 07/01 weeks, stop for 2 weeks, march repeat Gabapentin 00/00 Hx Capsules 300mg 1 by mouth Unknown /0000 once daily - 12/16 Clindamycin 00/00 Hx Lotion 1% apply as Unknown Phosphate /0000 needed - 12/16 Sulfamethoxazole-T 00/00 Hx Tablets 400-80mg 1 by mouth Unknown rimethoprim /0000 twice a day - 07/26 Fluocinolone 00/00 Hx Cream 0.01% apply twice Unknown Acetonide /0000 daily to - affected 12/16 area. as /2018 needed Medications Administered in Office Medication Date [...] Code Status Date Vaccine Reaction Lot # [id number] Given 09/15/2018 Fluzone High Dose no immediate reaction [id number] noted [id number] Given 10/19/2015 Influenza Virus 3Yrs & Over Vital Signs Date Vital Result Comment 02/18/2019 9:57am Height 64 inches 5'4" Weight [...] Result H/L Range Note Laboratory test 02/14/2019 [facility] Erythrocyte Sed 35 mm/Hr High 0-30 [address] [place] [address] [phone] C Reactive Protein 4.03 mg/L N <8.01 2 CBC Auto Diff 02/14/2019 [facility] White Blood 6.1 10^3/uL N 3.5-10.[address] [place] [address] [phone] Red Blood Count 4.64 10^6/uL N 3.70-4.87 [...] Cells % 0 Comp Metabolic Panel 02/14/2019 [facility] Sodium 139 mmol/L N 135-[address] [place] [address] [phone] Potassium 3.9 mmol/L N 3.5-5.0 Chloride 102 [...] Egfr 103.0 >60 3 Laboratory test 12/13/2018 [facility] Erythrocyte Sed 68 mm/Hr High 0-40 [address] [place] [place] [address] [phone] C Reactive Protein 8.24 mg/L High <8.01 5 CBC Auto Diff 12/13/2018 [facility] White Blood 7.4 10^3/uL N 3.5-10.[address] [place] [address] [phone] Red Blood Count 4.60 10^6/uL N 4.00-5.40 [...] Cells % 0 Comp Metabolic Panel 12/13/2018 [facility] Sodium 141 mmol/L N 135-[address] [place] [address] [phone] Potassium 3.6 mmol/L N 3.5-5.0 Chloride 102 [...] Egfr 89.1 >60 6 Laboratory test 09/13/2018 [facility] Erythrocyte Sed 64 mm/Hr High 0-40 [address] [place] [address] [phone] C Reactive Protein 2.89 mg/L N <8.01 8 CBC Auto Diff 09/13/2018 [facility] White Blood 8.3 10^3/uL N 3.5-10.[address] [place] [address] [phone] Red Blood Count 4.62 10^6/uL N 4.00-5.40 [...] Cells % 0 Comp Metabolic Panel 09/13/2018 [facility] Sodium 138 mmol/L N 135-[address] [place] [address] [phone] Potassium 4.2 mmol/L N 3.5-5.0 Chloride 102 [...] Egfr 92.1 >60 9 Hla B27 07/01/2018 [facility] Hla B27 Negative [address] [place] [address] [phone] Hla B27 Interp See Comment 11 Laboratory test 07/01/2018 [facility] Creatine 40 U/L N 10- 223 [address] Kinase(CK) [place] [address] [phone] Rheumatoid Factor < 10 IU/mL N <15 13 Erythrocyte Sed Rate 30 mm/Hr N 0-40 14 C Reactive Protein 3.86 mg/L N <8.01 15 Connective Tissue 07/01/2018 [facility] Anti-Nuclear 0.5 U [address] [place] [address] [phone] Cyclic Citrullinated Peptide <15.6 U 17 Interpretation See Comment 18 Istat BUN/Crea/Egfr/V 07/02/2017 [facility] Poc Bun 17 mg/dL N 9-[address] [address] [phone] Poc Crea Mainct 0.7 mg/dL N 0.6-0.9 GFR Non- MCT 81.4 N >60 GFR Mainct 104.6 N >60 19 Creatinine 11/21/2014 [facility] Creatinine 0.61 mg/dL N 0.51- 0.[address] [place] [address] [phone] Egfr Non- 95.9 N >60 Egfr 123.3 N >60 20 Laboratory test 11/21/2014 [facility] Blood Urea 16 mg/dL N 6- [address] [place] [address] [phone] Basic Metabolic 12/22/2013 [facility] Sodium 139 mmol/L 133- [address] [place] [address] [phone] Potassium 4.2 mmol/L 3.5-5.0 Chloride 105 mmol/L 101-111 Co2 Carbon Dioxide 29.0 mmol/L 22-32 Anion Gap 5.0 mmol/L 2-11 Glucose 78 mg/dL 70-100 Blood Urea Nitrogen 13 mg/dL 6-24 Creatinine 0.70 mg/dL 0.50-1.40 BUN/Creatinine Ratio 18.6 8-20 Calcium 9.5 mg/dL 8.1-9.9 Egfr Non- 82.0 >60 Egfr 105.5 >60 21 CBC No Diff 12/22/2013 [facility] White Blood 8.1 10^3/uL 4.8 -10.[address] [address] [phone] Red Blood Count 4.51 10^6/uL 4.0-5.4 Hemoglobin 12.4 g/dL 12.0-16.0 Hematocrit 38 % 35-47 Mean Corpuscular Volume 84 fL 80-97 Mean Corpuscular Hemoglobin 28 pg 27-31 Mean Corpuscular HGB Conc 33 g/dL 31-36 Red Cell Distribution Width 15 % 10.5-15 Platelet Count 235 10^3/uL 150-450 Mean Platelet Volume 10 um3 7.4-10.4 1 Test Performed by: [facility] [address], [place] [address] Tom Turner M.D. Director of Laboratory 2 [...] INFORMATION Method: Flow Cytometry Performing Laboratory CLIA# [id number] Test Performed by: [facility] [place] [facility] - [address] [address] 12 Please check labs this week CC: [...] > or= 3.0 U. Studies performed at [facility] indicate that positive NURIA results <3.0 U are rarely accompanied by positive second order tests. Test Performed by: [address] [address] Because ethnic data is not always [...] dialysis) Procedures Date Code Description Status 02/18/2019 99399 Inject/Drain Joint/Bursa Major W/O US Completed 07/14/2018 60000 Myocardial Perfusion Imaging Tomographic (Spect) Multiple Completed Studies 07/13/2018 21224 Stress Test Completed 07/13/2018 66895 Myocardial Perfusion Imaging Tomographic (Spect) Multiple Completed Studies 06/24/2018 97231 ECHO Transthoracic, Real-Time 2D With Doppler And Color Completed Flow 06/24/2018 62188 ECHO Transthoracic, Real-Time 2D With Doppler And Color Completed Flow 06/04/2018 52191 EKG Tracing & Interpretation Completed 06/23/2017 89190 EKG Tracing & Interpretation Completed 03/25/2016 67994 Mobile Cardiovascular Telemetry Over 24 HR Up To 30 Days Completed 03/25/2016 03460 Mobile Cardiovascular Telemetry Over 24 HR Up To 30 Days Completed 12/18/2015 31534 Stress Test Completed 12/18/2015 07821 Myocardial Perfusion Imaging Tomographic (Spect) Multiple Completed Studies 12/18/2015 73372 Myocardial Perfusion Imaging Tomographic (Spect) Multiple Completed Studies 12/17/2015 80221 ECHO Transthoracic, Real-Time 2D With Doppler And Color Completed Flow 12/13/2015 59004 EKG Tracing & Interpretation Completed 12/23/2013 86599 Laminotomy W/Decomp NRV RT,One Interspace,Lumbar Completed 12/22/2013 55064 EKG, Interpretation Only Completed 07/11/2011 08120 Xray Knee 3 Views Completed 07/11/2011 04410 Xray Knee 3 Views Completed Encounters Type Date Location Provider Dx Diagnosis Office Visit 12/16/2018 Rheumatology Yosi Amador, 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 polyarthropathy Z79.899 Other skilled nursing (current) drug therapy M43.16 Spondylolisthesis, lumbar region I89.0 Lymphedema, not elsewhere classified Z23 Encounter for immunization Office Visit 08/18/2018 Rheumatology Yosi M06.4 Inflammatory 2:40p [facility] Amador M.D. polyarthropathy Z79.899 Other intermediate project manager (current) drug therapy M54.5 Low back pain [...] in left knee Office Visit 06/04/2018 11:20a [facility] Aylin Devlin, R06.02 Shortness of Of [facility] M.D. breath R35.1 Nocturia M79.1 Myalgia M25.50 Pain in unspecified joint I89.0 Lymphedema, not elsewhere classified Office Visit 06/23/2017 9:00a [facility] Aylin Devlin, I34.0 Nonrheumatic mitral Cardiology Of M.D. (valve) [facility] insufficiency I10 Essential (primary) hypertension G47.33 Obstructive sleep apnea (adult) (pediatric) Office Visit 06/10/2016 2:45p [facility] Aylin Devlin, R42 Dizziness and Of [facility] Miko giddiness I10 Essential (primary) hypertension G47.33 Obstructive sleep apnea (adult) (pediatric) I34.0 Nonrheumatic mitral (valve) insufficiency R11.0 Nausea Office Visit 05/07/2016 10:30a [facility] ELVIN Kessler R42 Dizziness and giddiness R42 Dizziness and giddiness R55 Syncope and collapse R55 Syncope and collapse I95.9 Hypotension, unspecified G47.33 Obstructive sleep apnea (adult) (pediatric) I95.9 Hypotension, unspecified R60.0 Localized edema G47.33 Obstructive sleep apnea (adult) (pediatric) I34.0 Nonrheumatic mitral (valve) insufficiency R60.0 Localized edema R11.0 Nausea Office Visit 12/21/2015 2:40p [facility] Aylin Devlin, R06.02 Shortness of Of [employer] M.D. breath I34.0 Nonrheumatic mitral (valve) insufficiency I10 Essential (primary) hypertension Office Visit 12/13/2015 2:15p [facility] Aylin Devlin M.D. R05 Cough R06.02 Shortness of breath M79.621 Pain in right upper arm R01.1 Cardiac murmur, unspecified M79.622 Pain in left upper arm Office Visit 10/19/2015 9:45a [facility] Richy Pena M.D. R05 Cough [facility] Office Visit 10/15/2015 1:45p [facility] Richy Pena M.D. R05 Cough [facility] R06.02 Shortness of breath Office Visit 07/09/2015 Orthopedic Siria 715.96 Osteoarthrosis 10:45a Services Of MAC[facility] Mehta Unspec Genlzd Or C.M.A. Localized Lower Leg Office Visit 05/07/2015 Orthopedic Mati An 715.96 Osteoarthrosis 9:15a Services Of Miko Unspec Genlzd Or C.M.A. Localized Lower Leg 715.36 Osteoarthrosis Localzd Not Spec Prime Or 2Ndy Lower Leg 275.49 Metabolic Disorder Calcium Other Office Visit 01/10/2015 Orthopedic Mati An 715.16 Osteoarthrosis 10:00a Services Of C.M.AJones Crouch Localized Prim Lower Leg Office Visit 12/14/2014 Neurosurgery Tyrell 724.4 Neuritis Or 10:45a [facility] Corky, Radiculitis Thoracic M.D. Or Lumbosacral Unspec Office Visit 11/28/2014 [facility] Tyrell Douglas 722.10 Intervertebral Disc 2:00p [facility] Dejan, Displacement Lumbar M.DJones W/O Myelopathy 724.4 Neuritis Or Radiculitis Thoracic [...] 714.0 Rheumatoid Arthritis Plan of Treatment Future Appointment(s):03/04/2019 2:15 pm - Ileana Dean M.D. at [facility]03/18/2019 12:40 pm - Yosi Amador M.D. at [facility]03/17/2019 1:30 pm - Gabriela Cates NP at [facility]02/18/2019 - Ileana Dean M.D.M06.09 Rheumatoid arthritis without rheumatoid factor, multiple sitNew Therapy:Physical TherapyFollow up:Follow up: 2 hmueaW57.562 Pain in left kneeM25.561 Pain in right kneeM25.462 Effusion, left kneeM25.461 Effusion, right kneeM17.0 Bilateral primary osteoarthritis of knee
[2019-03-18 12:13] VITALS: BP 00/0
== END 2019-03-18 12:10 | disposition home or self-care (01) ==
LOC: ED 11:46
DX: T63.481A Toxic effect of venom of other arthropod, accidental (unintentional), initial encounter (principal); Y92.9 Unspecified place or not applicable; I10 Essential (primary) hypertension
CPT/HCPCS: 99281; A9270-GY

== ENCOUNTER 2023-10-02 10:24 | Observation (INO) ==
[2023-10-02] MEDS ORDERED: Piperacillin/Tazobac 3.375 BAG 3.375 GM/100 ML BAG IV ONE (11:15)
[2023-10-02 12:06] LABS: ABS Eosinophils 0.2 10^3/uL (0.0-0.5); ABS Lymphocytes 1.4 10^3/uL (1.0-4.8); ABS Neutrophils 8.6 10^3/uL (1.5-7.6); ABS Nucleated RBC 0.03 10^3/ul; Hematocrit 38.2 % (35-45); Hemoglobin 12.6 g/dL (11.5-14.3); Lymphocyte % 12.8 %; Mean Corpuscular Hemoglobin 27.1 pg (27-33); Mean Platelet Volume 10.4 fL (7.5-11.2); Nucleated Red Blood Cells % 0.2 %/100WBC (0.0-0.8); Platelet Count 211 10^3/uL (150-450); Red Blood Count 4.66 10^6/uL (3.63-4.92); Red Cell Distribution Width 16.2 % (12-17); White Blood Count 11.3 10^3/uL (3.8-11.8)
[2023-10-02 12:57] LABS: ALT 13 U/L (7-52); Albumin 3.9 g/dL (3.2-5.2); Albumin/Globulin Ratio 1.3 (1-3); Alkaline Phosphatase 59 U/L (35-149); Anion Gap 5 mmol/L (2-16); Blood Urea Nitrogen 19 mg/dL (6-24); C Reactive Protein 55.56 mg/L (<8.01); CO2 Carbon Dioxide 27 mmol/L (22-32); Calcium 9.2 mg/dL (8.6-10.3); Chloride 104 mmol/L (101-111); Creatinine, Serum 0.71 mg/dL (0.51-0.95); Glucose 89 mg/dL (70-100); Sodium 136 mmol/L (135-145); Total Bilirubin 0.7 mg/dL (0.2-1.0); Total Protein 6.9 g/dL (6.4-8.9); eGFR CKD-EPI 84.8 (>60)
[2023-10-02] MEDS ORDERED: ZOSYN 3.375 GM Q8H per EXTENDED INFUSION IV SCH (18:00)
[2023-10-02] MEDS ORDERED: Zosyn per Pharmacy NOTE FOLLOW UP SCH (18:00)
[2023-10-02 23:49] LABS: Potassium Redraw 3.1 mmol/L (3.5-5.0)
[2023-10-03] MEDS: ZOSYN 3.375 GM Q8H per EXTENDED INFUSION IV SCH ×3 (01:49→18:35)
[2023-10-03 06:35] LABS: ABS Basophils 0.2 10^3/uL (0.0-0.1); ABS Eosinophils 0.3 10^3/uL (0.0-0.5); ABS Lymphocytes 1.1 10^3/uL (1.0-4.8); Eosinophil % 3.5 %; Hematocrit 33.7 % (35-45); Hemoglobin 11.3 g/dL (11.5-14.3); Lymphocyte % 11.6 %; Mean Corpuscular Hemoglobin 27.4 pg (27-33); Mean Corpuscular Hgb Conc 33.6 g/dL (31-36); Mean Corpuscular Volume 81.5 fL (80-97); Mean Platelet Volume 9.7 fL (7.5-11.2); Platelet Count 195 10^3/uL (150-450); Red Blood Count 4.14 10^6/uL (3.63-4.92); Red Cell Distribution Width 15.7 % (12-17); White Blood Count 9.7 10^3/uL (3.8-11.8)
[2023-10-03 07:06] LABS: Calcium 8.5 mg/dL (8.6-10.3); Creatinine, Serum 0.83 mg/dL (0.51-0.95); Potassium 3.3 mmol/L (3.5-5.0); eGFR CKD-EPI 70.3 (>60)
[2023-10-03] MEDS ORDERED: Potassium Chlor 20 meq TAB.ER PO ONE (08:00)
[2023-10-03] MEDS ORDERED: Potassium Chloride LIQUID 20 MEQ/15 ML LIQUID PO ONE (09:00)
[2023-10-03] MEDS ORDERED: TROSPIUM CHLORIDE 60 MG PO SCH (09:00)
[2023-10-03] MEDS: CMCS:Mirabegron 25 mg ER TAB (NF) PO SCH (09:20)
[2023-10-03] MEDS: TROSPIUM CHLORIDE 60 MG PO SCH (09:21)
[2023-10-03] MEDS: Enoxaparin 30 MG/0.3 ML SYR SUBCUT SCH (18:30)
[2023-10-03] MEDS ORDERED: Vancomycin per Pharmacy 1 EA NOTE FOLLOW UP SCH (22:00)
[2023-10-03] MEDS ORDERED: Vancomycin 1,250 MG in NS 0.9% 250 ml 250 ML IVPB ONE (22:30)
[2023-10-04] MEDS: ZOSYN 3.375 GM Q8H per EXTENDED INFUSION IV SCH ×4 (02:22→22:34)
[2023-10-04 07:02] LABS: ABS Basophils 0.1 10^3/uL (0.0-0.1); ABS Eosinophils 0.5 10^3/uL (0.0-0.5); ABS Lymphocytes 1.4 10^3/uL (1.0-4.8); ABS Monocytes 0.6 10^3/uL (0.0-0.9); ABS Neutrophils 6.9 10^3/uL (1.5-7.6); ABS Nucleated RBC 0.02 10^3/ul; Eosinophil % 4.8 %; Hemoglobin 12.7 g/dL (11.5-14.3); Lymphocyte % 14.3 %; Mean Corpuscular Hemoglobin 27.5 pg (27-33); Mean Corpuscular Hgb Conc 33.4 g/dL (31-36); Mean Corpuscular Volume 82.3 fL (80-97); Mean Platelet Volume 10.5 fL (7.5-11.2); Nucleated Red Blood Cells % 0.2 %/100WBC (0.0-0.8); Platelet Count 241 10^3/uL (150-450); Red Blood Count 4.61 10^6/uL (3.63-4.92); Red Cell Distribution Width 15.7 % (12-17); White Blood Count 9.5 10^3/uL (3.8-11.8)
[2023-10-04 07:21] LABS: Calcium 9.1 mg/dL (8.6-10.3); Creatinine, Serum 0.94 mg/dL (0.51-0.95); Magnesium 1.8 mg/dL (1.9-2.7); Potassium 4.3 mmol/L (3.5-5.0); eGFR CKD-EPI 60.6 (>60)
[2023-10-04] MEDS: CMCS:Mirabegron 25 mg ER TAB (NF) PO SCH (09:03)
[2023-10-04] MEDS: TROSPIUM CHLORIDE 60 MG PO SCH (12:15)
[2023-10-04] MEDS: Vancomycin 750 MG in NS 0.9% 250 ML IVPB SCH ×2 (12:17→23:28)
[2023-10-04] MEDS: Enoxaparin 30 MG/0.3 ML SYR SUBCUT SCH (17:16)
[2023-10-05] MEDS: ZOSYN 3.375 GM Q8H per EXTENDED INFUSION IV SCH ×2 (04:11→09:49)
[2023-10-05] MEDS: CMCS:Mirabegron 25 mg ER TAB (NF) PO SCH (09:37)
[2023-10-05] MEDS: TROSPIUM CHLORIDE 60 MG PO SCH (09:40)
[2023-10-05 10:46] LABS: ABS Basophils 0.1 10^3/uL (0.0-0.1); ABS Eosinophils 0.4 10^3/uL (0.0-0.5); ABS Lymphocytes 1.2 10^3/uL (1.0-4.8); ABS Monocytes 0.3 10^3/uL (0.0-0.9); ABS Neutrophils 4.6 10^3/uL (1.5-7.6); ABS Nucleated RBC 0.02 10^3/ul; Eosinophil % 6.5 %; Hematocrit 36.4 % (35-45); Hemoglobin 12.1 g/dL (11.5-14.3); Lymphocyte % 17.9 %; Mean Corpuscular Hemoglobin 27.2 pg (27-33); Mean Corpuscular Hgb Conc 33.3 g/dL (31-36); Mean Corpuscular Volume 81.8 fL (80-97); Mean Platelet Volume 9.4 fL (7.5-11.2); Nucleated Red Blood Cells % 0.2 %/100WBC (0.0-0.8); Platelet Count 254 10^3/uL (150-450); Red Blood Count 4.46 10^6/uL (3.63-4.92); Red Cell Distribution Width 16.2 % (12-17); White Blood Count 6.5 10^3/uL (3.8-11.8)
[2023-10-05] MEDS ORDERED: Vancomycin Trough Check NOTE FOLLOW UP ONE (11:00)
[2023-10-05 11:03] LABS: Calcium 9.3 mg/dL (8.6-10.3); Creatinine, Serum 0.97 mg/dL (0.51-0.95); Potassium 3.9 mmol/L (3.5-5.0); eGFR CKD-EPI 58.3 (>60)
[2023-10-05] MEDS: Vancomycin 750 MG in NS 0.9% 250 ML IVPB SCH (12:33)
[2023-10-05 16:31] VITALS: BP 115/55
== END 2023-10-05 17:00 | disposition home or self-care (01) ==
LOC: ED 10:24 → EDHOLD 10:24 → SUATTDRO 17:31 → MEDTELE 18:48
PROVIDERS: ADMIT Internal Medicine; ATTEND Hospitalist